=== PATIENT | female | born 1985 | race Caucasian/White ===

== ENCOUNTER 2019-02-17 01:07 | Emergency (ER) | payer MEDICAID ==
[~2019-02-17] VITALS: Ht 154.9 cm; Wt 63.5 kg
[~2019-02-17 01:07] MED LIST: BUPR75TA5 PO; CIPR500T4 PO; CLON1TAB13 PO; IBP600T1 PO; LBT200T PO; LOXA25CA PO; MELA1CAP PO; METR-145 PO; NORG1TAB15 PO; OMEP-10 PO; OMEP20CA13 PO; ONDA4TAB8 SL; ONDN4T PO; OXYC-12 PO; PANT40TA2 PO; PREN1TAB39 PO; PROC5TAB52 PO; PROM25TA14 PO; PROP20TA5 PO; SUCR1TAB PO; SUCR1TAB36 PO; VALA500T4 PO
--- OUTSIDE RECORDS SUMMARY | 2019-02-17 01:15 | XMS REPORT ---
Author Author Migration, Doctor Organization [facility] Address Unknown Phone Unavailable Care Team Providers Care Tank Farm Attendant Name Role Phone Migration, Doctor Unavailable Unavailable PROBLEMS Type Condition ICD9-CM Code [id number] Code Onset Dates Condition Status SNOMED Code Problem Epigastric pain R10.13 Active 02167330 Problem Dyspepsia R10.13 Active 702770887 Problem Irritable bowel syndrome with diarrhea K58.0 Active 199270500 Problem Psychotic disorder F29 Active 99418062 Problem Borderline personality disorder F60.3 Active 98510407 Problem Chronic nausea R11.0 Active 414827726 Problem Long-term use of high-risk medication Z79.899 Active 305115941 Problem Schizophrenia, unspecified type F20.9 Active 97043060 Problem Alcohol use disorder F10.99 Active 79377659 ALLERGIES No Information ENCOUNTERS Encounter Location Date Diagnosis [place] [id number] [place] [address] Jul, Schizophrenia, unspecified type F20.9 ; Alcohol use disorder F10.99 and Borderline personality disorder F60.3 [place] [id number] [place] [address] Jun, Psychotic disorder F29 and Alcohol use disorder F10.99 [place] [id number] [place] [address] Jun, Encounter for immunization Z23 [place] [id number] [place] [address] Mar, [place] [address] [address] Jan, [place] [id number] [place] [address] Jan, Dyspepsia R10.13 ; Chronic nausea R11.0 ; Epigastric pain R10.13 ; Tinea versicolor B36.0 and Schizophrenia, unspecified type F20.9 [facility] [id number] [place] [address] Dec, Chronic nausea R11.0 [facility] [id number] [place] [address] Jul, [place] [address] [address] Jul, Chronic nausea R11.0 [place] [address] [address] Jun, Irritable bowel syndrome with diarrhea K58.0 ; Chronic nausea R11.0 ; Dyspepsia R10.13 ; Long-term use of high-risk medication Z79.899 and Viral gastroenteritis A08.4 [place] [address] [address] Jun, Fever, unspecified fever cause R50.9 and Gastroenteritis K52.9 [place] [address] [address] Jun, [place] [address] [address] Jun, [facility] [address] [address] May, Encounter for immunization Z23 [facility] [id number] [place] [address] Apr, Bronchitis J40 ; Cough R05 and Nausea R11.0 [facility] [address] [address] Apr, [facility] [id number] [place] [address] Jan, Chronic nausea R11.0 [facility] [address] [address] Jan, Irritable bowel syndrome with diarrhea K58.0 ; Chronic nausea R11.0 ; Dyspepsia R10.13 and Long-term use of high-risk medication Z79.899 [facility] [id number] [place] [address] Dec, Irritable bowel syndrome with diarrhea K58.0 [facility] [id number] [place] [address] November, Acute upper respiratory infection, unspecified J06.9 ; Fever R50.9 and Influenza B J10.1 [place] [id number] [place] [address] Oct, Chronic nausea R11.0 [facility] [id number] [place] [address] Sep, Irritable bowel syndrome with diarrhea K58.0 ; Chronic nausea R11.0 ; Dyspepsia R10.13 and Long-term use of high-risk medication Z79.899 [place] [id number] [place] [address] Aug, [place] [address] [address] Jul, Acute non-recurrent frontal sinusitis J01.10 [place] [id number] [place] [address] Jul, [facility] [id number] [place] [address] Jun, [facility] [id number] [place] [address] Jun, Bronchitis J40 [facility] [id number] [place] [address] May, [facility] [id number] [place] [address] May, Irritable bowel syndrome with diarrhea K58.0 ; Chronic nausea R11.0 ; Dyspepsia R10.13 and Long-term use of high-risk medication Z79.899 [facility] [address] [address] May, [facility] [address] [address] Apr, [facility] [id number] [place] [address] Apr, [facility] [id number] [place] [address] Feb, [facility] [id number] [place] [address] Jan, Irritable bowel syndrome with diarrhea K58.0 ; Chronic nausea R11.0 and Dyspepsia R10.13 [facility] [id number] [place] [address] Jan, [facility] [address] [place] [address] Jan, [facility] [id number] [address] Jan, [facility] [address], [place] [address] November, [facility] [address], [place] [address] November, Epigastric pain R10.13 and Diarrhea R19.7 [facility] [address], [place] [address] November, Epigastric pain R10.13 [facility] [address], [place] [address] November, [facility] [address], [place] [address] November, [facility] [address], [place] [address] Jun, Epigastric pain R10.13 ; Dyspepsia K30 and Diarrhea R19.7 [facility] [address] [place] [address] Apr, Epigastric pain R10.13 and Dyspepsia K30 [facility] [id number] [place] [address] Apr, Epigastric pain R10.13 ; Dyspepsia K30 and Change in bowel function R19.4 [facility] [id number] [place] [address] Apr, [facility] [id number] [place] [address] Apr, [facility] [id number] [place] [address] Apr, [facility] [id number] [place] [address] Apr, [facility] [id number] [place] [address] May, [facility] [id number] [place] [address] May, [facility] [id number] [place] [address] Mar, [facility] [id number] [place] [address] Sep, IMMUNIZATIONS No Known Immunizations SOCIAL HISTORY Never Assessed REASON FOR VISIT [facility] PLAN OF CARE VITAL SIGNS MEDICATIONS No Known Medications RESULTS No Results PROCEDURES No Known procedures INSTRUCTIONS MEDICATIONS ADMINISTERED No Known Medications MEDICAL (GENERAL) HISTORY Type Description Date Medical History anxiety Medical History depression Medical History borderline personality disorder Medical History auditory hallucinations 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
--- OUTSIDE RECORDS SUMMARY | 2019-02-17 01:15 | XMS REPORT ---
Author Author RONNA GIBBS [facility] Address [address] [place] [address] Care Team Providers Care Telecommunications Line Installer Name Role Phone RONNA GIBBS Unavailable PROBLEMS Type Condition ICD9-CM Code HLG37-AO Code Onset Dates Condition Status SNOMED Code Problem Schizophrenia, unspecified type F20.9 Active 71999950 Problem Long-term use of high-risk medication Z79.899 Active 904335101 Problem Dyspepsia R10.13 Active 958451942 Problem Epigastric pain R10.13 Active 98674147 Problem Chronic nausea R11.0 Active 805678499 Problem Irritable bowel syndrome with diarrhea K58.0 Active 038014248 ALLERGIES No Information ENCOUNTERS Encounter Location Date Diagnosis [place] [id number] [place] [address] Mar, [place] [id number] [place] [address] Jan, [place] [id number] [place] [address] Jan, Dyspepsia R10.13 ; Chronic nausea R11.0 ; Epigastric pain R10.13 ; Tinea versicolor B36.0 and Schizophrenia, unspecified type F20.9 [facility] [place] [address] [place] [address] Dec, Chronic nausea R11.0 [place] [id number] [place] [address] Jul, [place] [id number] [place] [address] Jul, Chronic nausea R11.0 [place] [id number] [place] [address] Jun, Irritable bowel syndrome with diarrhea K58.0 ; Chronic nausea R11.0 ; Dyspepsia R10.13 ; Long-term use of high-risk medication Z79.899 and Viral gastroenteritis A08.4 [place] [id number] [place] [address] Jun, Fever, unspecified fever cause R50.9 and Gastroenteritis K52.9 [place] [address] [address] Jun, [place] [address] [address] Jun, [place] [address] [address] May, Encounter for immunization Z23 [facility] [address] [address] Apr, Bronchitis J40 ; Cough R05 and Nausea R11.0 [place] [id number] [place] [address] Apr, [place] [address] [address] Jan, Chronic nausea R11.0 [place] [id number] [place] [address] Jan, Irritable bowel syndrome with diarrhea K58.0 ; Chronic nausea R11.0 ; Dyspepsia R10.13 and Long-term use of high-risk medication Z79.899 [place] [address] [address] Dec, Irritable bowel syndrome with diarrhea K58.0 [facility] [id number] [place] [address] November, Acute upper respiratory infection, unspecified J06.9 ; Fever R50.9 and Influenza B J10.1 [place] [address] [address] Oct, Chronic nausea R11.0 [facility] [place] [address] [place] [address] Sep, Irritable bowel syndrome with diarrhea K58.0 ; Chronic nausea R11.0 ; Dyspepsia R10.13 and Long-term use of high-risk medication Z79.899 [facility] [place] [address] [place] [address] Aug, [facility] [place] [address] [place] [address] Jul, Acute non-recurrent frontal sinusitis J01.10 [facility] [place] [id number] [place] [address] Jul, [facility] [place] [id number] [place] [address] Jun, [facility] [place] [address] [address] Jun, Bronchitis J40 [facility] [place] [id number] [place] [address] May, [facility] [place] [address] [address] May, Irritable bowel syndrome with diarrhea K58.0 ; Chronic nausea R11.0 ; Dyspepsia R10.13 and Long-term use of high-risk medication Z79.899 [facility] [place] [address] [address] May, [facility] [place] [id number] [place] [address] Apr, [facility] [place] [address] [address] Apr, [facility] [place] [id number] [place] [address] Feb, [facility] [place] [address] [address] Jan, Irritable bowel syndrome with diarrhea K58.0 ; Chronic nausea R11.0 and Dyspepsia R10.13 [facility] [place] [address] [address] Jan, [facility] [place] [id number] [place] [address] Jan, [facility] [place] [id number] [place] [address] Jan, [facility] [place] [id number] [place] [address] November, [facility] [place] [id number] [address] November, Epigastric pain R10.13 and Diarrhea R19.7 [facility] [place] [address] [address] November, Epigastric pain R10.13 [facility] [place] [address] [address] November, [facility] [place] [address] [address] November, [facility] [place] [address] [address] Jun, Epigastric pain R10.13 ; Dyspepsia K30 and Diarrhea R19.7 [facility] [place] [address] [address] Apr, Epigastric pain R10.13 and Dyspepsia K30 [facility] [place] [address] [address] Apr, Epigastric pain R10.13 ; Dyspepsia K30 and Change in bowel function R19.4 [place] [address] [address] Apr, [facility] [place] [address] [address] Apr, [facility] [place] [address] [address] Apr, [facility] [place] [address] [address] Apr, [facility] [place] [address] [place] [address] May, [facility] [place] [address] [place] [address] May, [facility] [place] [address] [address] Mar, [facility] [place] [address] [address] Sep, IMMUNIZATIONS No Known Immunizations SOCIAL HISTORY Never Assessed REASON FOR VISIT Medication PLAN OF CARE VITAL SIGNS MEDICATIONS Medication Instructions Dosage Frequency Start Date End Date Duration Status Zofran ODT 4 MG Orally every 6 hours, PRN 1 tablet on the tongue and allow to dissolve as needed Jan, Active RESULTS No Results PROCEDURES No Known procedures [...]
--- OUTSIDE RECORDS SUMMARY | 2019-02-17 01:15 | XMS REPORT ---
Author Author RONNA GIBBS Organization [facility] Address [address] [place] [address] Care Team Providers Care Inspector Heating And Refrigeration Name Role Phone GIBBSRONNA Doss Unavailable PROBLEMS Type Condition ICD9-CM Code CAA27-FI Code Onset Dates Condition Status SNOMED Code Problem Schizophrenia, unspecified type F20.9 Active 03171990 Problem Long-term use of high-risk medication Z79.899 Active 013018646 Problem Dyspepsia R10.13 Active 090069270 Problem Epigastric pain R10.13 Active 87951894 Problem Chronic nausea R11.0 Active 746217423 Problem Irritable bowel syndrome with diarrhea K58.0 Active 494244909 ALLERGIES No Information ENCOUNTERS Encounter Location Date Diagnosis [place] [id number] [place] [address] Jan, [place] [id number] [place] [address] Jan, Dyspepsia R10.13 ; Chronic nausea R11.0 ; Epigastric pain R10.13 ; Tinea versicolor B36.0 and Schizophrenia, unspecified type F20.9 [place] [id number] [place] [address] Dec, Chronic nausea R11.0 [place] [id number] [place] [address] Jul, [place] [id number] [place] [address] Jul, Chronic nausea R11.0 [place] [id number] [place] [address] Jun, Irritable bowel syndrome with diarrhea K58.0 ; Chronic nausea R11.0 ; Dyspepsia R10.13 ; Long-term use of high-risk medication Z79.899 and Viral gastroenteritis A08.[address] [address] Jun, Fever, unspecified fever cause R50.9 and Gastroenteritis K52.[address] [address] Jun, [place] [address] [address] Jun, [address] [address] May, Encounter for immunization Z23 [facility] [address] [address] Apr, Bronchitis J40 ; Cough R05 and Nausea R11.[address] [address] Apr, [address] [address] Jan, Chronic nausea R11.[address] [address] Jan, Irritable bowel syndrome with diarrhea K58.0 ; Chronic nausea R11.0 ; Dyspepsia R10.13 and Long-term use of high-risk medication Z79.899 [place] [id number] [place] [address] Dec, Irritable bowel syndrome with diarrhea K58.0 [facility] [address] [place] [address] November, Acute upper respiratory infection, unspecified J06.9 ; Fever R50.9 and Influenza B J10.[address] [address] Oct, Chronic nausea R11.0 [facility] [address] [place] [address] Sep, Irritable bowel syndrome with diarrhea K58.0 ; Chronic nausea R11.0 ; Dyspepsia R10.13 and Long-term use of high-risk medication Z79.899 [facility] [id number] [place] [address] Aug, [facility] [id number] [place] [address] Jul, Acute non-recurrent frontal sinusitis J01.10 [place] [id number] [place] [address] Jul, [facility] [id number] [place] [address] Jun, [facility] [id number] [place] [address] Jun, Bronchitis J40 [facility] [id number] [place] [address] May, [facility] [id number] [place] [address] May, Irritable bowel syndrome with diarrhea K58.0 ; Chronic nausea R11.0 ; Dyspepsia R10.13 and Long-term use of high-risk medication Z79.899 [facility] [id number] [place] [address] May, [facility] [id number] [place] [address] Apr, [facility] [id number] [place] [address] Apr, [facility] [address] [place] [address] Feb, [facility] [id number] [place] [address] Jan, Irritable bowel syndrome with diarrhea K58.0 ; Chronic nausea R11.0 and Dyspepsia R10.13 [facility] [id number] [address] Jan, [facility] [id number] [place] [address] Jan, [facility] [id number] [place] [address] Jan, [facility] [id number] [place] [address] November, [facility] [id number] [place] [address] November, Epigastric pain R10.13 and Diarrhea R19.7 [facility] [id number] [place] [id number] November, Epigastric pain R10.13 [facility] [id number] [place] [id number] November, [facility] [id number] [place] [id number] November, [facility] [id number] [place] [id number] Jun, Epigastric pain R10.13 ; Dyspepsia K30 and Diarrhea R19.7 [facility] [id number] [address] Apr, Epigastric pain R10.13 and Dyspepsia K30 [facility] [id number] [place] [id number] Apr, Epigastric pain R10.13 ; Dyspepsia K30 and Change in bowel function R19.4 [facility] [id number] [place] [id number] Apr, [id number] [address] Apr, [facility] [id number] [address] Apr, [facility] [id number] [address] Apr, [facility] [id number] [address] May, [facility] [id number] [address] May, [facility] [id number] [address] Mar, [facility] [id number] [address] Sep, IMMUNIZATIONS No Known Immunizations SOCIAL HISTORY Never Assessed REASON FOR VISIT Medication question PLAN OF CARE VITAL SIGNS MEDICATIONS Medication Instructions Dosage Frequency Start Date End Date Duration Status Zofran ODT 4 MG Orally every 8 hours, PRN 1 tablet on the tongue [...]
--- OUTSIDE RECORDS SUMMARY | 2019-02-17 01:15 | XMS REPORT ---
Author Author MONICA CACERES [facility] Address [address] [place] [address] Care Team Providers Care [employer] Foreign Language Teacher Name Role Phone MONICA CACERES Unavailable PROBLEMS Type Condition ICD9-CM Code BAB23-HW Code Onset Dates Condition Status SNOMED Code Problem Schizophrenia, unspecified type F20.9 Active 53567019 Problem Long-term use of high-risk medication Z79.899 Active 536831241 Problem Dyspepsia R10.13 Active 470361636 Problem Epigastric pain R10.13 Active 78359572 Problem Chronic nausea R11.0 Active 615733033 Problem Irritable bowel syndrome with diarrhea K58.0 Active 667640831 ALLERGIES No Information ENCOUNTERS Encounter Location Date Diagnosis [place] [id number] [place] [id number] [place] [address] Jun, [place] [address] [address] Jun, Encounter for immunization Z23 [place] [address] [id number] [place] [address] Mar, [place] [address] [id number] [place] [address] Jan, [place] [id number] [place] [address] Jan, Dyspepsia R10.13 ; Chronic nausea R11.0 ; Epigastric pain R10.13 ; Tinea versicolor B36.0 and Schizophrenia, unspecified type F20.9 [place] [address] [id number] [place] [address] Dec, Chronic nausea R11.0 [place] [address] [place] [address] Jul, [facility] [address] [address] Jul, Chronic nausea R11.0 [place] [address] [address] Jun, Irritable bowel syndrome with diarrhea K58.0 ; Chronic nausea R11.0 ; Dyspepsia R10.13 ; Long-term use of high-risk medication Z79.899 and Viral gastroenteritis A08.4 [place] [address] [address] Jun, Fever, unspecified fever cause R50.9 and Gastroenteritis K52.9 [place] [address] [address] Jun, [place] [address] [address] Jun, [place] [address] [address] May, Encounter for immunization Z23 [facility] [address] [address] Apr, Bronchitis J40 ; Cough R05 and Nausea R11.0 [place] [id number] [place] [address] Apr, [place] [address] [address] Jan, Chronic nausea R11.0 [place] [address] [address] Jan, Irritable bowel syndrome with diarrhea K58.0 ; Chronic nausea R11.0 ; Dyspepsia R10.13 and Long-term use of high-risk medication Z79.899 [place] [address] [address] Dec, Irritable bowel syndrome with diarrhea K58.0 [facility] IN [facility] [address] [place] [address] November, Acute upper respiratory infection, unspecified J06.9 ; Fever R50.9 and Influenza B J10.1 [facility] [id number] [place] [address] Oct, Chronic nausea R11.0 [facility] [id number] [place] [address] Sep, Irritable bowel syndrome with diarrhea K58.0 ; Chronic nausea R11.0 ; Dyspepsia R10.13 and Long-term use of high-risk medication Z79.899 [place] [address] [id number] [place] [address] Aug, [place] [address] [address] Jul, Acute non-recurrent frontal sinusitis J01.10 [place] [id number] [place] [address] Jul, [place] [id number] [place] [address] Jun, [place] [id number] [place] [address] Jun, Bronchitis J40 [place] [id number] [place] [address] May, [place] [address] [id number] [place] [address] May, Irritable bowel syndrome with diarrhea K58.0 ; Chronic nausea R11.0 ; Dyspepsia R10.13 and Long-term use of high-risk medication Z79.899 [place] [id number] [place] [address] May, [place] [address] [address] Apr, [facility] [address] [place] [address] Apr, [facility] [address] [place] [address] Feb, [facility] [id number] [place] [address] Jan, Irritable bowel syndrome with diarrhea K58.0 ; Chronic nausea R11.0 and Dyspepsia R10.13 [facility] [address], [place] [address] Jan, [facility] [address] [place] [address] Jan, [facility] [address] [place] [address] Jan, [facility] [address], [place] [address] November, [facility] [address], [place] [address] November, Epigastric pain R10.13 and Diarrhea R19.7 [facility] [address], [place] [address] November, Epigastric pain R10.13 [facility] [address], [place] [address] November, [facility] [address], [place] [address] November, [facility] [address], [place] [address] Jun, Epigastric pain R10.13 ; Dyspepsia K30 and Diarrhea R19.7 [facility] [address], [place] [address] Apr, Epigastric pain R10.13 and Dyspepsia K30 [facility] [address], [place] [address] Apr, Epigastric pain R10.13 ; Dyspepsia K30 and Change in bowel function R19.4 [facility] [address], [place] [address] Apr, [facility] [id number] [place] [address] Apr, [facility] [id number] [place] [address] Apr, [facility] [id number] [place] [address] Apr, [facility] [id number] [place] [address] May, [facility] [id number] [place] [address] May, [facility] [id number] [place] [address] Mar, [facility] [id number] [place] [address] Sep, IMMUNIZATIONS Vaccine Route Administration Date Status FLULAVAL QUAD 0.5ML (6 MO AND UP) 2017 IM Intramuscular Jul 09, 2018 Administered SOCIAL HISTORY Never Assessed REASON FOR VISIT Flu shot PLAN OF CARE VITAL SIGNS MEDICATIONS Unknown Medications RESULTS No Results PROCEDURES Procedure Date Ordered Result Body Site FLULAVAL QUAD 0.5ML (6 MO AND UP) 2017Jul 09, 2018 SINGLE IMMUNIZATION ADMIN Jul 09, 2018 INSTRUCTIONS MEDICATIONS ADMINISTERED No Known Medications MEDICAL [...] with Intractable N/V, Colitis 11/28/15 Hospitalization History 11/30-12/09/15
--- OUTSIDE RECORDS SUMMARY | 2019-02-17 01:15 | XMS REPORT ---
Author Author RONNA GIBBS [facility] Address [address] [place] [address] Care Team Providers Care Mica Layer Name Role Phone RONNA GIBBS Unavailable PROBLEMS Type Condition ICD9-CM Code ISL81-QW Code Onset Dates Condition Status SNOMED Code Problem Schizophrenia, unspecified type F20.9 Active 47991523 Problem Long-term use of high-risk medication Z79.899 Active 698760636 Problem Dyspepsia R10.13 Active 227727228 Problem Epigastric pain R10.13 Active 05455680 Problem Chronic nausea R11.0 Active 401399933 Problem Irritable bowel syndrome with diarrhea K58.0 Active 457613635 ALLERGIES Substance Reaction Event Type Date Status Benadryl allergic to the red dye in this med Drug Allergy Jan, Active ENCOUNTERS Encounter Location Date Diagnosis [place] [id number] [place] [address] Jan, [place] [address] [place] [id number] [place] [address] Jan, Dyspepsia R10.13 ; Chronic nausea R11.0 ; Epigastric pain R10.13 ; Tinea versicolor B36.0 and Schizophrenia, unspecified type F20.9 [facility] [address] [place] [address] Dec, Chronic nausea R11.0 [place] [address] [place] [id number] [place] [address] Jul, [place] [address] [place] [address] [id number] [place] [address] Jul, Chronic nausea R11.0 [place] [address] [place] [address] [id number] [place] [address] Jun, Irritable bowel syndrome with diarrhea K58.0 ; Chronic nausea R11.0 ; Dyspepsia R10.13 ; Long-term use of high-risk medication Z79.899 and Viral gastroenteritis A08.4 [place] [address] [place] [address] [id number] [place] [address] Jun, Fever, unspecified fever cause R50.9 and Gastroenteritis K52.[address] [address] Jun, [place] [address] [address] Jun, [address] [address] May, Encounter for immunization Z23 [facility] [address] [address] Apr, Bronchitis J40 ; Cough R05 and Nausea R11.0 [place] [id number] [place] [address] Apr, [address] [address] Jan, Chronic nausea R11.0 [place] [id number] [place] [address] Jan, Irritable bowel syndrome with diarrhea K58.0 ; Chronic nausea R11.0 ; Dyspepsia R10.13 and Long-term use of high-risk medication Z79.899 [place] [address] [id number] [place] [address] Dec, Irritable bowel syndrome with diarrhea K58.0 [facility] [place] [address] [address] November, Acute upper respiratory infection, unspecified J06.9 ; Fever R50.9 and Influenza B J10.1 [place] [address] [address] Oct, Chronic nausea R11.0 [facility] [address] [id number] [place] [address] Sep, Irritable bowel syndrome with diarrhea K58.0 ; Chronic nausea R11.0 ; Dyspepsia R10.13 and Long-term use of high-risk medication Z79.899 [facility] [address] [place] [address] [id number] [place] [address] Aug, [facility] [address] [place] [address] [id number] [place] [address] Jul, Acute non-recurrent frontal sinusitis J01.10 [facility] [address] [place] [address] [id number] [place] [address] Jul, [facility] [address] [place] [address] [id number] [place] [address] Jun, [facility] [address] [place] [address] [id number] [place] [address] Jun, Bronchitis J40 [facility] [address] [place] [address] [id number] [place] [address] May, [facility] [address] [place] [address] May, Irritable bowel syndrome with diarrhea K58.0 ; Chronic nausea R11.0 ; Dyspepsia R10.13 and Long-term use of high-risk medication Z79.899 [facility] [address] [place] [address] May, [facility] [address] [place] [id number] [place] [address] Apr, [facility] [address] [place] [address] Apr, [facility] [address] [place] [address] [id number] [place] [address] Feb, [facility] [address] [address] Jan, Irritable bowel syndrome with diarrhea K58.0 ; Chronic nausea R11.0 and Dyspepsia R10.13 [facility] [address] [address] Jan, [facility] [address] [place] [id number] [place] [address] Jan, [facility] [address] [place] [address] Jan, [facility] [address] [place] [id number] [place] [address] November, [facility] [address] [id number] [place] [address] November, Epigastric pain R10.13 and Diarrhea R19.7 [facility] [address], [place] [address] November, Epigastric pain R10.13 [facility] [address] [id number] [place] [address] November, [facility] [address], [place] [address] November, [facility] [address], [place] [address] Jun, Epigastric pain R10.13 ; Dyspepsia K30 and Diarrhea R19.7 [facility] [address], [place] [address] Apr, Epigastric pain R10.13 and Dyspepsia K30 [facility] [address], [place] [address] Apr, Epigastric pain R10.13 ; Dyspepsia K30 and Change in bowel function R19.4 [facility] [address] [place] [address] [address] Apr, [facility] [address], [place] [address] Apr, [facility] [address], [place] [address] Apr, [facility] [address], [place] [address] Apr, [facility] [address], [place] [address] May, [facility] [address] [place] [address] May, [facility] [address], [place] [address] Mar, [facility] [address], [place] [address] Sep, IMMUNIZATIONS No Known Immunizations SOCIAL HISTORY Never Assessed REASON FOR VISIT Transition of Care., c/o patches all over body that are red and itchy-awoods PLAN OF CARE Activity Details Follow Up 3 Months, prn Reason:chm/dyspepsia VITAL SIGNS Height 61 in 2018-02-02 Weight 121.5 lbs 2018-02-02 Temperature 97.8 degrees Fahrenheit 2018-02-02 Heart Rate 70 bpm 2018-02-02 Respiratory Rate 18 2018-02-02 BMI 22.95 kg/m2 2018-02-02 Blood pressure systolic 110 mmHg 2018-02-02 Blood pressure diastolic 68 mmHg 2018-02-02 MEDICATIONS Medication Instructions Dosage Frequency Start Date End Date Duration Status Trintellix 10 MG Orally Once a day 1 tablet 24h Active Ativan 1 MG Orally TID, PRN 1 tablet as needed Active Fluphenazine Decanoate Active Sucralfate 1 gm/10ml Orally 3 times a day 10 mls three times per day on an empty stomach before meals 8h Jul, 30 days Active Compazine 5 mg Orally every 6-8 hours, PRN Nausea- 1 tablet Active Ketoconazole 2 % Externally Once a day apply to body and leave on for 5 minutes 24h Jan, Jan, 03 days Active Fluconazole 150 MG Orally once weekly 2 tablets per week for two weeks Jan, Jan, 2 days Active Tri-Sprintec 0.18/0.215/0.25 MG-35 MCG Orally Once a day 1 tablet 24h Active Restoril 15 mg Orally Once a day 1 capsule at bedtime as needed 24h Active Protonix 40 mg Orally Once a day 1 tablet 24h 90 days Active RESULTS No Results PROCEDURES Procedure Date Ordered Result Body Site COMPLETE CBC W/AUTO DIFF WBC February 02, 2018 COMPREHEN METABOLIC PANEL February 02, 2018 LIPID PANEL February 02, 2018 ASSAY THYROID STIM HORMONE February 02, 2018 VENIPUNCT, ROUTINE* February 02, 2018 INSTRUCTIONS MEDICATIONS ADMINISTERED No Known Medications [...]
--- OUTSIDE RECORDS SUMMARY | 2019-02-17 01:16 | XMS REPORT ---
Author Author MONICA CACERES [facility] Address [address] [place] [address] Care Team Providers Care Auto Rental Supervisor Name Role Phone MONICA CACERES Unavailable PROBLEMS Type Condition ICD9-CM Code QCJ43-NE Code Onset Dates Condition Status SNOMED Code Problem Schizophrenia, unspecified type F20.9 Active 43374986 Problem Long-term use of high-risk medication Z79.899 Active 802405302 Problem Dyspepsia R10.13 Active 704906303 Problem Epigastric pain R10.13 Active 69995929 Problem Chronic nausea R11.0 Active 466742898 Problem Irritable bowel syndrome with diarrhea K58.0 Active 731537405 ALLERGIES No Information ENCOUNTERS Encounter Location Date Diagnosis [place] [id number] [place] [address] Jan, [place] [id number] [place] [address] Jan, Dyspepsia R10.13 ; Chronic nausea R11.0 ; Epigastric pain R10.13 ; Tinea versicolor B36.0 and Schizophrenia, unspecified type F20.9 [place] [id number] [place] [address] Dec, Chronic nausea R11.0 [place] [address] [id number] [place] [address] Jul, [place] [address] [place] [id number] [place] [address] Jul, Chronic nausea R11.0 [place] [id number] [place] [address] Jun, Irritable bowel syndrome with diarrhea K58.0 ; Chronic nausea R11.0 ; Dyspepsia R10.13 ; Long-term use of high-risk medication Z79.899 and Viral gastroenteritis A08.[address] [address] Jun, Fever, unspecified fever cause R50.9 and Gastroenteritis K52.[address] [address] Jun, [place] [address] [address] Jun, [address] [address] May, Encounter for [facility] Z23 [facility] [address] [address] Apr, Bronchitis J40 ; Cough R05 and Nausea R11.[address] [address] Apr, [address] [address] Jan, Chronic nausea R11.[address] [address] Jan, Irritable bowel syndrome with diarrhea K58.0 ; Chronic nausea R11.0 ; Dyspepsia R10.13 and Long-term use of high-risk medication Z79.899 [place] [id number] [place] [address] Dec, Irritable bowel syndrome with diarrhea K58.0 [facility] [address] [address] November, Acute upper respiratory infection, unspecified J06.9 ; Fever R50.9 and Influenza B J10.[address] [address] Oct, Chronic nausea R11.0 [facility] [address] [place] [address] Sep, Irritable bowel syndrome with diarrhea K58.0 ; Chronic nausea R11.0 ; Dyspepsia R10.13 and Long-term use of high-risk medication Z79.899 [facility] [id number] [place] [address] Aug, [facility] [address] [place] [id number] [place] [address] Jul, Acute non-recurrent frontal sinusitis J01.10 [facility] [address] [address] Jul, [facility] [address] [place] [id number] [place] [address] Jun, [facility] [address] [place] [id number] [place] [address] Jun, Bronchitis J40 [facility] [address] [place] [id number] [place] [address] May, [facility] [address] [place] [id number] [place] [address] May, Irritable bowel syndrome with diarrhea K58.0 ; Chronic nausea R11.0 ; Dyspepsia R10.13 and Long-term use of high-risk medication Z79.899 [facility] [address] [id number] [place] [address] May, [facility] [address] [place] [id number] [place] [address] Apr, [facility] [address] [id number] [place] [address] Apr, [facility] [address] [place] [address] [id number] [place] [address] Feb, [facility] [address] [place] [address] Jan, Irritable bowel syndrome with diarrhea K58.0 ; Chronic nausea R11.[address] [facility] [address], [place] [address] Jan, [facility] [id number] [place] [address] Jan, [facility] [id number] [place] [address] Jan, [facility] [id number] [place] [address] November, [facility] [address] [place] [id number] [place] [address] November, Epigastric pain R10.[address] [facility] [address] [place] [id number] [place] [address] November, Epigastric pain R10.13 [facility] [address] [place] [address] [id number] [place] [address] November, [facility] [address] [place] [id number] [place] [address] November, [facility] [address], [place] [address] Jun, Epigastric pain R10.13 ; Dyspepsia K30 and Diarrhea R19.7 [facility] [address], [place] [address] Apr, Epigastric pain R10.[address] [facility] [address] [place] [id number] [place] [address] Apr, Epigastric pain R10.13 ; Dyspepsia K30 and Change in bowel function R19.4 [facility] [address] [place] [address] Apr, [facility] [address] [place] [address] [address] Apr, [facility] [address] [place] [address] [address] [address] Apr, [facility] [address], [place] [address] Apr, [facility] [address] [address] May, [facility] [address] [place] [address] May, [facility] [address], [place] [address] Mar, [facility] [address], [place] [address] Sep, IMMUNIZATIONS No Known Immunizations SOCIAL HISTORY Never Assessed REASON FOR VISIT Refill request PLAN OF CARE VITAL SIGNS MEDICATIONS Medication Instructions Dosage Frequency Start Date End Date Duration Status Compazine 5 mg Orally every 6-8 hours, PRN Nausea- 1 tablet Active RESULTS No Results PROCEDURES No Known [...]
--- OUTSIDE RECORDS SUMMARY | 2019-02-17 01:16 | XMS REPORT ---
Author Author MONICA CACERES [facility] Address [address] [place] [address] Care Team Providers Care Communications Department Chair Name Role Phone MONICA CACERES Unavailable PROBLEMS Type Condition ICD9-CM Code BLH90-PC Code Onset Dates Condition Status SNOMED Code Problem Pediatric pre- visit for expectant mother V65.11 Active Problem Dyspepsia K30 Active 236482304 Problem Need for prophylactic vaccination and inoculation, Influenza V04.81 Active 172755965 Problem Long-term use of high-risk medication Z79.899 Active 568747991 Problem Chronic nausea R11.0 Active 650048987 Problem Epigastric pain R10.13 Active 34618438 Problem Diarrhea R19.7 Active 52459042 Problem Dyspepsia R10.13 Active 100558389 Problem Irritable bowel syndrome with diarrhea K58.0 Active 318788938 ALLERGIES Substance Reaction Event Type Date Status Benadryl allergic to the red dye in this med Drug Allergy Sep, Active SOCIAL HISTORY Never Assessed PLAN OF CARE Activity Details Follow Up 3 Months Reason:Nausea/Med FU VITAL SIGNS Height 61 in 2016-09-18 Weight 99.5 lbs 2016-09-18 Temperature 99.6 degrees Fahrenheit 2016-09-18 Heart Rate 76 bpm 2016-09-18 Respiratory Rate 18 2016-09-18 BMI 18.80 kg/m2 2016-09-18 Blood pressure systolic 126 mmHg 2016-09-18 Blood pressure diastolic 76 mmHg 2016-09-18 MEDICATIONS Medication Instructions Dosage Frequency Start Date End Date Duration Status Tramadol HCl 50 MG Orally every 6 hrs prn must last 3 months 1 tablet as needed Active Dicyclomine HCl 10 mg Orally 3 times a day 1-2 capsules 8h Sep, Sep, 10 days Active Loxapine Succinate 10 mg Orally Once a day in the evening 1 capsule Active Compazine 5 mg Orally every 6-8 hours, PRN Nausea- 1 tablet Active Protonix 40 mg Orally Once a day 1 tablet 24h Active Sucralfate 1 gram Orally 3 times a day 1 tablet 8h Active Klonopin 1 MG Orally 3 times a day 1 tablet 8h Active Propranolol HCl 20 MG Orally 3 times a day 1.5 tablet 8h Active Tri-Sprintec 0.18/0.215/0.25 MG-35 MCG Orally Once a day 1 tablet 24h Active RESULTS Name Result Date Reference Range CBC 2016-09-18 WBC 8.1 3.4-10.8 RBC 4.63 3.77-5.28 Hemoglobin 14.3 11.1-15.9 Hematocrit 42.7 34.0-46.6 MCV 92 79-97 MCH 30.9 26.6-33.0 MCHC 33.5 31.5-35.7 RDW 14.3 12.3-15.4 Platelets 201 150-379 Neutrophils 49 Lymphs 44 Monocytes 5 Eos 2 Basos 0 Neutrophils (Absolute) 4.0 1.4-7.0 Lymphs (Absolute) 3.6 0.7-3.1 Monocytes(Absolute) 0.4 0.1-0.9 Eos (Absolute) 0.1 0.0-0.4 Baso (Absolute) 0.0 0.0-0.2 Immature Granulocytes 0 Immature Grans (Abs) 0.0 0.0-0.1 CMP 2016-09-18 Glucose, Serum 79 65-99 BUN 7 6-20 Creatinine, Serum 0.66 0.57-1.00 eGFR If NonAfricn Am 116 >59 eGFR If Africn Am 134 >59 BUN/Creatinine Ratio 11 8-20 Sodium, Serum 141 134-144 Potassium, Serum 3.8 3.5-5.2 Chloride, Serum 100 96-106 Carbon Dioxide, Total 24 18-29 Calcium, Serum 9.0 8.7-10.2 Protein, Total, Serum 7.0 6.0-8.5 Albumin, Serum 4.5 3.5-5.5 Globulin, Total 2.5 1.5-4.5 A/G Ratio 1.8 1.1-2.5 Bilirubin, Total 0.4 0.0-1.2 Alkaline Phosphatase, S 45 39-117 AST (SGOT) 11 0-40 ALT (SGPT) 12 0-32 PROCEDURES Procedure Date Ordered Result Body Site COMPREHEN METABOLIC PANEL September 18, 2016 COMPLETE CBC W/AUTO DIFF WBC September 18, 2016 VENIPUNCT, ROUTINE* September 18, 2016 IMMUNIZATIONS No Known Immunizations MEDICAL (GENERAL) HISTORY Type Description Date Medical History anxiety Medical History depression Medical History borderline personality disorder Medical History auditory hallucinations 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
--- OUTSIDE RECORDS SUMMARY | 2019-02-17 01:16 | XMS REPORT ---
Author Author MONICA CACERES Organization [facility] Address [address] [place] [address] Care Team Providers Care Log Handler Name Role Phone MONICA CACERES Unavailable PROBLEMS Type Condition ICD9-CM Code SBK93-GI Code Onset Dates Condition Status SNOMED Code Problem Dyspepsia K30 Active 589478685 Problem Long-term use of high-risk medication Z79.899 Active 723973591 Problem Chronic nausea R11.0 Active 520886223 Problem Epigastric pain R10.13 Active 81767456 Problem Diarrhea R19.7 Active 12533129 Problem Dyspepsia R10.13 Active 524426637 Problem Irritable bowel syndrome with diarrhea K58.0 Active 045600883 ALLERGIES No Information ENCOUNTERS Encounter Location Date Diagnosis [place] [id number] [place] [phone] Jul, [place] [address] [address] 15 Jul, 2017 Chronic nausea R11.0 [place] [id number] [place] [address] 13 Jun, 2017 Irritable bowel syndrome with diarrhea K58.0 ; Chronic nausea R11.0 ; Dyspepsia R10.13 ; Long-term use of high-risk medication Z79.899 and Viral gastroenteritis A08.4 [place] [id number] [place] [address] 11 Jun, 2017 Fever, unspecified fever cause R50.9 and Gastroenteritis K52.9 [place] [id number] [place] [address] 05 Jun, 2017 [place] [address] [address] Jun, [facility] [id number] [place] [address] May, Encounter for immunization Z23 [facility] [id number] [place] [address] Apr, Bronchitis J40 ; Cough R05 and Nausea R11.[address] [address] Apr, [place] [address] [address] Jan, Chronic nausea R11.0 [place] [address] [address] Jan, Irritable bowel syndrome with diarrhea K58.0 ; Chronic nausea R11.0 ; Dyspepsia R10.13 and Long-term use of high-risk medication Z79.899 [place] [id number] [place] [address] Dec, Irritable bowel syndrome with diarrhea K58.0 [facility] [id number] [place] [address] November, Acute upper respiratory infection, unspecified J06.9 ; Fever R50.9 and Influenza B J10.1 [place] [id number] [place] [address] Oct, Chronic nausea R11.0 [place] [id number] [place] [address] Sep, Irritable bowel syndrome with diarrhea K58.0 ; Chronic nausea R11.0 ; Dyspepsia R10.13 and Long-term use of high-risk medication Z79.899 [place] [id number] [place] [address] Aug, [place] [address] [address] Jul, Acute non-recurrent frontal sinusitis J01.10 [facility] [id number] [place] [address] Jul, [facility] [id number] [place] [address] Jun, [facility] [id number] [place] [address] Jun, Bronchitis J40 [facility] [id number] [place] [address] May, [facility] [id number] [place] [address] May, Irritable bowel syndrome with diarrhea K58.0 ; Chronic nausea R11.0 ; Dyspepsia R10.13 and Long-term use of high-risk medication Z79.899 [facility] [id number] [place] [address] May, [facility] [id number] [place] [address] Apr, [facility] [id number] [place] [address] Apr, [facility] [id number] [place] [phone] Feb, [facility] [id number] [place] [address] Jan, Irritable bowel syndrome with diarrhea K58.0 ; Chronic nausea R11.0 and Dyspepsia R10.13 [facility] [id number] [place] [address] Jan, [facility] [id number] [place] [phone] Jan, [facility] [id number] [place] [address] Jan, [facility] [address] [address] November, [facility] [id number] [place] [address] November, Epigastric pain R10.13 and Diarrhea R19.7 [facility] [id number] [address] November, Epigastric pain R10.13 [facility] [id number] [place] [phone] November, [facility] [id number] [place] [address] November, [facility] [id number] [place] [address] Jun, Epigastric pain R10.13 ; Dyspepsia K30 and Diarrhea R19.7 [facility] [address] [place] [address] Apr, Epigastric pain R10.13 and Dyspepsia K30 [facility] [id number] [place] [address] Apr, Epigastric pain R10.13 ; Dyspepsia K30 and Change in bowel function R19.4 [facility] [address], [place] [address] Apr, [facility] [address], [place] [address] Apr, [facility] [address], [place] [address] Apr, [facility] [address] [address] Apr, [facility] [address] [address] May, [facility] [id number] [place] [address] May, [facility] [address] [facility] [id number] [place] [address] Mar, [facility] [address] [facility] [id number] [place] [address] Sep, IMMUNIZATIONS No Known Immunizations SOCIAL HISTORY Never Assessed REASON FOR VISIT Medication refill request PLAN OF CARE VITAL SIGNS MEDICATIONS Medication Instructions Dosage Frequency Start Date End Date Duration Status Compazine 5 mg Orally every 6-8 hours, PRN Nausea-Must have appt for refills 1 tablet Active RESULTS No Results PROCEDURES [...] ovary Hospitalization History Out patient therapy for issues 2007 Hospitalization History Abd Pain with Intractable N/V, Colitis 11/28/15 Hospitalization History [facility]
--- OUTSIDE RECORDS SUMMARY | 2019-02-17 01:16 | XMS REPORT ---
Author Author MONICA CACERES Organization [facility] Address [address] [place] [address] Care Team Providers Care Senior Recruitment Consultant Name Role Phone MONICA CACERES Unavailable PROBLEMS Type Condition ICD9-CM Code ATF62-SC Code Onset Dates Condition Status SNOMED Code Problem Dyspepsia K30 Active 829007233 Problem Long-term use of high-risk medication Z79.899 Active 011571170 Problem Chronic nausea R11.0 Active 297926911 Problem Epigastric pain R10.13 Active 02980822 Problem Diarrhea R19.7 Active 62043150 Problem Dyspepsia R10.13 Active 591039542 Problem Irritable bowel syndrome with diarrhea K58.0 Active 996656765 ALLERGIES No Information ENCOUNTERS Encounter Location Date Diagnosis [place] [id number] [place] [address] Jul, [place] [address] [address] 15 Jul, 2017 Chronic nausea R11.0 [place] [id number] [place] [address] 13 Jun, 2017 Irritable bowel syndrome with diarrhea K58.0 ; Chronic nausea R11.0 ; Dyspepsia R10.13 ; Long-term use of high-risk medication Z79.899 and Viral gastroenteritis A08.4 [place] [id number] [place] [address] 11 Jun, 2017 Fever, unspecified fever cause R50.9 and Gastroenteritis K52.9 [place] [id number] [place] [address] 05 Jun, 2017 [place] [address] [address] Jun, [facility] [id number] [place] [address] May, Encounter for immunization Z23 [facility] [id number] [place] [address] Apr, Bronchitis J40 ; Cough R05 and Nausea R11.[address] [address] Apr, [place] [address] [address] Jan, Chronic nausea R11.0 [place] [address] [address] Jan, Irritable bowel syndrome with diarrhea K58.0 ; Chronic nausea R11.0 ; Dyspepsia R10.13 and Long-term use of high-risk medication Z79.899 [place] [id number] [place] [address] Dec, Irritable bowel syndrome with diarrhea K58.0 [facility] IN [facility] [id number] [place] [address] November, Acute upper respiratory infection, unspecified J06.9 ; Fever R50.9 and Influenza B J10.1 [place] [id number] [place] [address] Oct, Chronic nausea R11.0 [place] [id number] [place] [address] Sep, Irritable bowel syndrome with diarrhea K58.0 ; Chronic nausea R11.0 ; Dyspepsia R10.13 and Long-term use of high-risk medication Z79.899 [place] [id number] [place] [address] Aug, [place] [address] [address] Jul, Acute non-recurrent frontal sinusitis J01.10 [facility] [id number] [place] [address] Jul, [facility] [id number] [place] [address] Jun, [facility] [id number] [place] [address] Jun, Bronchitis J40 [facility] [id number] [place] [address] May, [facility] [id number] [place] [address] May, Irritable bowel syndrome with diarrhea K58.0 ; Chronic nausea R11.0 ; Dyspepsia R10.13 and Long-term use of high-risk medication Z79.899 [facility] [id number] [place] [address] May, [facility] [id number] [place] [address] Apr, [facility] [id number] [place] [address] Apr, [facility] [id number] [place] [address] Feb, [facility] [id number] [place] [address] Jan, Irritable bowel syndrome with diarrhea K58.0 ; Chronic nausea R11.0 and Dyspepsia R10.13 [facility] [id number] [place] [address] Jan, [facility] [id number] [place] [address] Jan, [facility] [id number] [place] [address] Jan, [facility] [address], [place] [address] November, [facility] [id number] [place] [address] November, Epigastric pain R10.13 and Diarrhea R19.7 [facility] [id number] [address] November, Epigastric pain R10.13 [facility] [id number] [place] [address] November, [facility] [id number] [place] [address] November, [facility] [id number] [place] [address] Jun, Epigastric pain R10.13 ; Dyspepsia K30 and Diarrhea R19.7 [facility] [address] [place] [address] Apr, Epigastric pain R10.13 and Dyspepsia K30 [facility] [id number] [place] [address] Apr, Epigastric pain R10.13 ; Dyspepsia K30 and Change in bowel function R19.4 [facility] [address], [place] [address] Apr, [facility] [address], [place] [address] Apr, [facility] [address], [place] [address] Apr, [facility] [address], [place] [address] Apr, [facility] [address], [place] [address] May, [facility] [address] [place] [id number] [address] May, [facility] [address] [facility] [id number] [place] [address] Mar, [facility] [address] [facility] [id number] [place] [address] Sep, IMMUNIZATIONS No Known Immunizations SOCIAL HISTORY [...]
--- OUTSIDE RECORDS SUMMARY | 2019-02-17 01:16 | XMS REPORT ---
Author Author ZACK VERGARA Organization [facility] Address [address] [place] [address] Care Team Providers Care Senior Product Integrity Engineer Name Role Phone ZACK VERGARA Unavailable PROBLEMS Type Condition ICD9-CM Code NHN93-KH Code Onset Dates Condition Status SNOMED Code Problem Pediatric pre- visit for expectant mother V65.11 Active Problem Dyspepsia K30 Active 812603565 Problem Need for prophylactic vaccination and inoculation, Influenza V04.81 Active 830868907 Problem Long-term use of high-risk medication Z79.899 Active 242152256 Problem Chronic nausea R11.0 Active 845331194 Problem Epigastric pain R10.13 Active 63778266 Problem Diarrhea R19.7 Active 16379358 Problem Dyspepsia R10.13 Active 177808968 Problem Irritable bowel syndrome with diarrhea K58.0 Active 379359442 ALLERGIES Substance Reaction Event Type Date Status Benadryl allergic to the red dye in this med Drug Allergy November, Active SOCIAL HISTORY Never Assessed PLAN OF CARE VITAL SIGNS Height 61 in 2016-11-29 Weight 110.4 lbs 2016-11-29 Temperature 98.9 degrees Fahrenheit 2016-11-29 Heart Rate 80 bpm 2016-11-29 Respiratory Rate 22 2016-11-29 BMI 20.86 kg/m2 2016-11-29 Blood pressure systolic 128 mmHg 2016-11-29 Blood pressure diastolic 74 mmHg 2016-11-29 MEDICATIONS Medication Instructions Dosage Frequency Start Date End Date Duration Status Tramadol HCl 50 MG Orally every 6 hrs prn must last 3 months 1 tablet as needed Active Protonix 40 mg Orally Once a day 1 tablet 24h Active Tri-Sprintec 0.18/0.215/0.25 MG-35 MCG Orally Once a day 1 tablet 24h Active Klonopin 1 MG Orally 3 times a day 1 tablet 8h Active Loxapine Succinate 10 mg Orally Once a day in the evening 1 capsule Active Compazine 5 mg Orally every 6-8 hours, PRN Nausea- 1 tablet Active Tessalon Perles 100 mg Orally Three times a day 1 capsule as needed 8h November, Active Sucralfate 1 gram Orally 3 times a day 1 tablet 8h Active Tamiflu 75 MG Orally Twice a day 1 capsule 12h November, 5 day(s) Active Propranolol HCl 20 MG Orally 3 times a day 1.5 tablet 8h Active RESULTS Name Result Date Reference Range INFLUENZA A & B (IN HOUSE) 2016-11-29 INFLUENZA A negative INFLUENZA B positive Control + Lot # [id number] Exp date 2018 PROCEDURES Procedure Date Ordered Result Body Site INFLUENZA ASSAY W/OPTIC November 29, 2016 IMMUNIZATIONS No Known Immunizations MEDICAL (GENERAL) [...]
--- OUTSIDE RECORDS SUMMARY | 2019-02-17 01:16 | XMS REPORT ---
Author Author MONICA CACERES [facility] Address [address] [place] [address] Care Team Providers Care Community Pharmacist Name Role Phone MONICA CACERES Unavailable PROBLEMS Type Condition ICD9-CM Code VRQ02-PV Code Onset Dates Condition Status SNOMED Code Problem Dyspepsia K30 Active 443320615 Problem Long-term use of high-risk medication Z79.899 Active 367237089 Problem Chronic nausea R11.0 Active 487682316 Problem Epigastric pain R10.13 Active 39598671 Problem Diarrhea R19.7 Active 01752729 Problem Dyspepsia R10.13 Active 251702099 Problem Irritable bowel syndrome with diarrhea K58.0 Active 087214747 ALLERGIES Substance Reaction Event Type Date Status Benadryl allergic to the red dye in this med Drug Allergy Jun, Active ENCOUNTERS Encounter Location Date Diagnosis [place] [address] [address] Jul, [place] [address] [address] Jul, Chronic nausea R11.0 [place] [address] [address] Jun, Irritable bowel syndrome with diarrhea K58.0 ; Chronic nausea R11.0 ; Dyspepsia R10.13 ; Long-term use of high-risk medication Z79.899 and Viral gastroenteritis A08.4 [place] [address] [address] Jun, Fever, unspecified fever cause R50.9 and Gastroenteritis K52.9 [place] [address] [address] Jun, [facility] [id number] [place] [address] Jun, [facility] [address] [address] May, Encounter for immunization Z23 [facility] [address] [place] [id number] [place] [address] Apr, Bronchitis J40 ; Cough R05 and Nausea R11.0 [facility] [address] [place] [id number] [place] [address] Apr, [place] [address] [address] Jan, Chronic nausea R11.0 [place] [address] [place] [id number] [place] [address] Jan, Irritable bowel syndrome with diarrhea K58.0 ; Chronic nausea R11.0 ; Dyspepsia R10.13 and Long-term use of high-risk medication Z79.899 [place] [address] [place] [id number] [place] [address] Dec, Irritable bowel syndrome with diarrhea K58.0 [facility] [address] [place] [id number] [place] [address] November, Acute upper respiratory infection, unspecified J06.9 ; Fever R50.9 and Influenza B J10.1 [facility] [address] [place] [id number] [place] [address] Oct, Chronic nausea R11.0 [facility] [address] [place] [address] Sep, Irritable bowel syndrome with diarrhea K58.0 ; Chronic nausea R11.0 ; Dyspepsia R10.13 and Long-term use of high-risk medication Z79.899 [facility] [address] [place] [address] Aug, [facility] [address] [address] Jul, Acute non-recurrent frontal sinusitis J01.10 [facility] [address] [address] Jul, [facility] [address] [address] Jun, [facility] [address] [place] [id number] [place] [address] Jun, Bronchitis J40 [facility] [address] [place] [id number] [place] [address] May, [facility] [address] [place] [id number] [place] [address] May, Irritable bowel syndrome with diarrhea K58.0 ; Chronic nausea R11.0 ; Dyspepsia R10.13 and Long-term use of high-risk medication Z79.899 [facility] [address] [address] May, [facility] [address] [place] [id number] [place] [address] Apr, [facility] [address] [address] Apr, [facility] [address] [address] Feb, [facility] [address] [address] Jan, Irritable bowel syndrome with diarrhea K58.0 ; Chronic nausea R11.0 and Dyspepsia R10.13 [facility] [address] [address] Jan, [facility] [address] [address] Jan, [facility] [address] [address] Jan, [facility] [address] [address] November, [facility] [address] [address] November, Epigastric pain R10.13 and Diarrhea R19.7 [facility] [address] [place] [id number] [place] [address] November, Epigastric pain R10.13 [facility] [address] [place] [address] November, [facility] [address] [place] [id number] [place] [address] November, [facility] [address] [place] [id number] [place] [address] Jun, Epigastric pain R10.13 ; Dyspepsia K30 and Diarrhea R19.7 [facility] [address] [address] Apr, Epigastric pain R10.13 and Dyspepsia K30 [facility] [address] [address] Apr, Epigastric pain R10.13 ; Dyspepsia K30 and Change in bowel function R19.4 [facility] [address] [address] Apr, [facility] [address] [address] Apr, [facility] [address] [address] Apr, [facility] [address] [address] Apr, [facility] [id number] [place] [address] May, [facility] [address] [facility] [id number] [address] May, [facility] [address] [facility] [id number] [address] Mar, [facility] [address] [facility] [id number] [address] Sep, IMMUNIZATIONS No Known Immunizations SOCIAL HISTORY Never Assessed REASON FOR VISIT Nausea: was seen on Thursday for similar symptoms with the addition of diarrhea, d iarrhea has subsided, but patient continues to vomit bobby negrete PLAN OF CARE Activity Details Follow Up if not improving or regular fu Reason:chronic n/v VITAL SIGNS Height 61 in 2017-07-01 Weight 113.5 lbs 2017-07-01 Temperature 98.6 degrees Fahrenheit 2017-07-01 Heart Rate 76 bpm 2017-07-01 Respiratory Rate 18 2017-07-01 BMI 21.44 kg/m2 2017-07-01 Blood pressure systolic 110 mmHg 2017-07-01 Blood pressure diastolic 76 mmHg 2017-07-01 MEDICATIONS Medication Instructions Dosage Frequency Start Date End Date Duration Status Tri-Sprintec 0.18/0.215/0.25 MG-35 MCG Orally Once a day 1 tablet 24h Active Loxapine Succinate 10 mg Orally Once a day in the evening 1 capsule 28 days Active Propranolol HCl 20 MG Orally 3 times a day 1.5 tablet 8h Active Tessalon Perles 100 mg Orally Three times a day 1 capsule as needed 8h November, Not-Taking Zofran 4 MG Orally every 4-6 hours as needed 12 tablets Apr, 10 days Active Zofran 4 MG Orally every 8 hours, PRN 1 tablets Active Azithromycin 500 mg Orally Once a day one tablet 24h Apr, Active Sucralfate 1 gm/10ml Orally 3 times a day 1 tablet 8h Active Tramadol HCl 50 MG Orally every 6 hrs prn must last 3 months 1 tablet as needed Active ProAir HFA 108 (90 Base) MCG/ACT Inhalation every 6 hrs 2 puffs as needed 6h Apr, Active Zofran 4 MG Orally every 4 hours prn 1 tablets Jun, 10 days Active Klonopin 1 MG Orally 3 times a day 1 tablet 8h Active Protonix 40 mg Orally Once a day 1 tablet 24h Active Zofran 4 MG Orally every 4-6 hours as needed 1 tablets Apr, 07 days Active Tamiflu 75 MG Orally Twice a day 1 capsule 12h November, 5 day(s) Not-Taking Compazine 5 mg Orally every 6-8 hours, PRN Nausea- 1 tablet Active RESULTS No Results PROCEDURES Procedure Date Ordered Result Body Site IV INFUSION 2017-07-01 N/A [facility] Jul 01, 2017 HYDRATION IV INFUSION, INIT Jul 01, 2017 INSTRUCTIONS MEDICATIONS ADMINISTERED No Known Medications MEDICAL [...]
--- OUTSIDE RECORDS SUMMARY | 2019-02-17 01:17 | XMS REPORT ---
Author MONICA Sampson [facility] [employer] Address Unknown Phone Unavailable Care Team Providers Care Household Manager Name Role Phone MONICA CACERES CP Unavailable Allergies, Adverse Reactions, Alerts Substance Reaction Event Type Benadryl allergic to the red dye in this med Drug Allergy Problems Problem Type Condition Code Onset Dates Condition Status Assessment Chronic nausea R11.0 Active Problem Pediatric pre- visit for expectant mother V65.11 Active Assessment Irritable bowel syndrome with diarrhea K58.0 Active Assessment Dyspepsia R10.13 Active Problem Chronic nausea R11.0 Active Problem Dyspepsia R10.13 Active Problem Irritable bowel syndrome with diarrhea K58.0 Active Problem Diarrhea R19.7 Active Problem Need for prophylactic vaccination and inoculation, Influenza V04.81 Active Problem Epigastric pain R10.13 Active Problem Dyspepsia K30 Active Medications Medication Code System Code Instructions Start Date End Date Status Dosage Ultram ER [facility] [address]-34 100 MG Orally Once a day December 12, 2015 February 05, 2016 1 tablet Compazine [facility] [address]-72 5 mg Orally every 6-8 hours, PRN Nausea- must attend scheduled appt 02/04November 29, 2015 1 tablet Protonix [facility] [address]-24 40 mg Orally Once a day 1 tablet Propranolol HCl [facility] [address]-28 20 MG Orally 3 times a day 1.5 tablet Klonopin [facility] [address]-18 1 MG Orally 3 times a day 1 tablet Loxapine Succinate [facility] [address]-14 10 mg Orally Once a day in the evening 1 capsule Tri-Sprintec [facility] [address]-69 0.18/0.215/0.25 MG-35 MCG Orally Once a day 1 tablet Sucralfate [facility] [address]-69 1 GM/10ML Orally 3 times a day 10 ml Procedures Procedure Coding System Code Date Office Visit, Est Pt., Level 4 CPT-4 50367 February 05, 2016 VENIPUNCT, ROUTINE* CPT-4 07962 February 05, 2016 [facility] NOBLL February 05, 2016 Vital Signs Date/Time: February 05, 2016 Cardiac Monitoring Heart Rate 84 bpm Weight 97.6 lbs Height 61 in Blood Pressure Diastolic 68 mmHg Blood Pressure Systolic 121 mmHg Results No Known Results Summary Purpose eClinicalWorks Submission
--- OUTSIDE RECORDS SUMMARY | 2019-02-17 01:17 | XMS REPORT ---
Author Author ZACK VERGARA Organization [facility] Address [address] [place] [address] Care Team Providers Care Physics And Astronomy Professor Name Role Phone ZACK VERGARA Unavailable PROBLEMS Type Condition ICD9-CM Code [id number] Code Onset Dates Condition Status SNOMED Code Problem Pediatric pre- visit for expectant mother V65.11 Active Problem Diarrhea R19.7 Active 74754233 Problem Need for prophylactic vaccination and inoculation, Influenza V04.81 Active 115888269 Problem Long-term use of high-risk medication Z79.899 Active 736304300 Problem Irritable bowel syndrome with diarrhea K58.0 Active 546475765 Problem Epigastric pain R10.13 Active 08329985 Problem Dyspepsia K30 Active 335649289 Problem Chronic nausea R11.0 Active 495706945 Problem Dyspepsia R10.13 Active 635463417 ALLERGIES Substance Reaction Event Type Date Status Benadryl allergic to the red dye in this med Drug Allergy Jun, Active SOCIAL HISTORY No smoking Hx information available PLAN OF CARE VITAL SIGNS Height 61 in 2016-07-14 Weight 100.6 lbs 2016-07-14 Temperature 99.4 degrees Fahrenheit 2016-07-14 Heart Rate 84 bpm 2016-07-14 Respiratory Rate 22 2016-07-14 BMI 19.01 kg/m2 2016-07-14 Blood pressure systolic 130 mmHg 2016-07-14 Blood pressure diastolic 71 mmHg 2016-07-14 MEDICATIONS Medication Instructions Dosage Frequency Start Date End Date Duration Status Propranolol HCl 20 MG Orally 3 times a day 1.5 tablet 8h Active Tri-Sprintec 0.18/0.215/0.25 MG-35 MCG Orally Once a day 1 tablet 24h Active Protonix 40 mg Orally Once a day 1 tablet 24h Active Tramadol HCl 50 MG Orally every 6 hrs prn must last 3 months 1 tablet as needed May, Active Klonopin 1 MG Orally 3 times a day 1 tablet 8h Active Zithromax Z-Conor 250 MG Orally Once a day 2 tablets on the first day, then 1 tablet daily for 4 days 24h Jun, Jun, 5 day(s) Active Loxapine Succinate 10 mg Orally Once a day in the evening 1 capsule Active Tessalon Perles 100 MG Orally Three times a day 1 capsule as needed 8h Jun, Active Sucralfate 1 gram Orally 3 times a day 1 tablet 8h Active Compazine 5 mg Orally every 6-8 hours, PRN Nausea- 1 tablet Active RESULTS No Results PROCEDURES Procedure Date Ordered Related Diagnosis Body Site Office Visit, Est Pt., Level 3 Jul 14, 2016 IMMUNIZATIONS No Known Immunizations
--- OUTSIDE RECORDS SUMMARY | 2019-02-17 01:17 | XMS REPORT ---
Author Author MONICA CACERES Organization [employer] Address Unknown Phone Unavailable Care Team Providers Care Office Nurse Name Role Phone MONICA CACERES CP Unavailable Allergies No Known Allergies Problems Problem Type Condition Code Onset Dates Condition Status Problem Pediatric pre- visit for expectant mother V65.11 Active Problem Chronic nausea R11.0 Active Problem Dyspepsia R10.13 Active Problem Irritable bowel syndrome with diarrhea K58.0 Active Problem Diarrhea R19.7 Active Problem Need for prophylactic vaccination and inoculation, Influenza V04.81 Active Problem Epigastric pain R10.13 Active Problem Dyspepsia K30 Active Medications Medication Code System Code Instructions Start Date End Date Status Dosage Compazine NDC 0 5 mg Orally every 6-8 hours, PRN Nausea- must attend scheduled appt for additional refills November 29, 2015 1 tablet Results No Known Results Summary Purpose eClinicalWorks Submission
--- OUTSIDE RECORDS SUMMARY | 2019-02-17 01:17 | XMS REPORT ---
Author Author MONICA CACERES Organization [employer] Address Unknown Phone Unavailable Care Team Providers Care History Card Clerk Name Role Phone MONICA CACERES CP Unavailable [...]
--- OUTSIDE RECORDS SUMMARY | 2019-02-17 01:17 | XMS REPORT ---
Author Author MONICA CACERES Organization [facility] Address [address] [place] [address] Care Team Providers Care Electronic Equipment Repairmen Name Role Phone MONICA CACERES Unavailable PROBLEMS Type Condition ICD9-CM Code [id number] Code Onset Dates Condition Status SNOMED Code Problem Pediatric pre- visit for expectant mother V65.11 Active Problem Dyspepsia K30 Active 862544215 Problem Need for prophylactic vaccination and inoculation, Influenza V04.81 Active 680368175 Problem Long-term use of high-risk medication Z79.899 Active 128791469 Problem Chronic nausea R11.0 Active 638338476 Problem Epigastric pain R10.13 Active 98603303 Problem Diarrhea R19.7 Active 65795112 Problem Dyspepsia R10.13 Active 003542133 Problem Irritable bowel syndrome with diarrhea K58.0 Active 789088909 ALLERGIES No Information SOCIAL HISTORY Never Assessed PLAN OF CARE VITAL SIGNS MEDICATIONS Medication Instructions Dosage Frequency Start Date End Date Duration Status Compazine 5 mg Orally every 6-8 hours, PRN Nausea-MUST HAVE APPT FOR FURTHER REFILLS 1 tablet Active RESULTS No Results PROCEDURES No Known procedures IMMUNIZATIONS No Known Immunizations MEDICAL (GENERAL) HISTORY [...]
--- OUTSIDE RECORDS SUMMARY | 2019-02-17 01:17 | XMS REPORT ---
Author Author MONICA CACERES Organization [employer] Address Unknown Phone Unavailable Care Team Providers Care Corporate Security Officer Name Role Phone MONICA CACERES CP Unavailable [...] R10.13 Active Problem Dyspepsia K30 Active Medications No Known Medications Results No Known Results Summary Purpose eClinicalWorks Submission
--- OUTSIDE RECORDS SUMMARY | 2019-02-17 01:17 | XMS REPORT ---
Author Author MONICA CACERES Organization [employer] Address Unknown Phone Unavailable Care Team Providers Care Pattern Data Operator Name Role Phone MONICA CACERES CP Unavailable Allergies, Adverse Reactions, Alerts Substance Reaction Event Type Benadryl allergic to the red dye in this med Drug Allergy Problems Problem Type Condition Code Onset Dates Condition Status Assessment Diarrhea R19.7 Active Problem Dyspepsia K30 Active Problem Diarrhea R19.7 Active Problem Epigastric pain R10.13 Active Assessment Epigastric pain R10.13 Active Assessment Dyspepsia K30 Active Problem Need for prophylactic vaccination and inoculation, Influenza V04.81 Active Problem Pediatric pre- visit for expectant mother V65.11 Active Medications Medication Code System Code Instructions Start Date End Date Status Dosage Tri-Sprintec [facility] [address]-07 0.18/0.215/0.25 MG-35 MCG Orally Once a day 1 tablet Loxapine Succinate [facility] [address]-37 10 MG Orally Twice a day 1 capsule Wellbutrin [facility] [address]-21 75 MG Orally Twice a day 1 tablet Omeprazole [facility] [address]-08 20 MG Orally Once a day 1 capsule Klonopin [facility] [address]-07 1 MG Orally 3 times a day 0.5 tablet Propranolol HCl [facility] [address]-60 20 MG Orally 3 times a day 1.5 tablet Procedures Procedure Coding System Code Date Office Visit, Est Pt., Level 3 CPT-4 55221 Jun 21, 2015 Vital Signs Date/Time: Jun 21, 2015 Temperature 97.8 F Weight 102.5 lbs Height 61 in BMI 19.37 Index Blood Pressure Diastolic 70 mmHg Blood Pressure Systolic 112 mmHg Cardiac Monitoring Heart Rate 82 bpm Results No Known Results Summary Purpose eClinicalWorks Submission
--- OUTSIDE RECORDS SUMMARY | 2019-02-17 01:17 | XMS REPORT ---
Author Author KEVIN JEREZ [facility] Address [address] [place] [address] Care Team Providers Care Java Security Engineer Name Role Phone MERI KEVIN Unavailable PROBLEMS Type Condition ICD9-CM Code OSS70-PL Code Onset Dates Condition Status SNOMED Code Problem Dyspepsia K30 Active 998203525 Problem Long-term use of high-risk medication Z79.899 Active 248102936 Problem Chronic nausea R11.0 Active 993844809 Problem Epigastric pain R10.13 Active 42225030 Problem Diarrhea R19.7 Active 90486968 Problem Dyspepsia R10.13 Active 548405473 Problem Irritable bowel syndrome with diarrhea K58.0 Active 358704275 ALLERGIES No Information ENCOUNTERS Encounter Location Date Diagnosis [place] [address] [id number] [place] [address] Jul, [address] [address] Jul, Chronic nausea R11.0 [place] [address] [id number] [place] [address] Jun, Irritable bowel syndrome with diarrhea K58.0 ; Chronic nausea R11.0 ; Dyspepsia R10.13 ; Long-term use of high-risk medication Z79.899 and Viral gastroenteritis A08.4 [place] [id number] [place] [address] Jun, Fever, unspecified fever cause R50.9 and Gastroenteritis K52.9 [place] [address] [id number] [place] [address] Jun, [place] [address] [address] Jun, [place] [address] [id number] [place] [address] May, Encounter for immunization Z23 [facility] [address] [address] Apr, Bronchitis J40 ; Cough R05 and Nausea R11.[address] [address] Apr, [place] [address] [address] Jan, Chronic nausea R11.[address] [address] Jan, Irritable bowel syndrome with diarrhea K58.0 ; Chronic nausea R11.0 ; Dyspepsia R10.13 and Long-term use of high-risk medication Z79.899 [place] [address] [address] Dec, Irritable bowel syndrome with diarrhea K58.[address] [facility] [place] [address] [address] November, Acute upper respiratory infection, unspecified J06.9 ; Fever R50.9 and Influenza B J10.[address] [address] Oct, Chronic nausea R11.0 [place] [address] [address] Sep, Irritable bowel syndrome with diarrhea K58.0 ; Chronic nausea R11.0 ; Dyspepsia R10.13 and Long-term use of high-risk medication Z79.899 [place] [id number] [place] [address] Aug, [place] [address] [address] Jul, Acute non-recurrent frontal sinusitis J01.10 [facility] [address] [address] Jul, [facility] [address] [place] [address] Jun, [facility] [id number] [place] [address] Jun, Bronchitis J40 [facility] [id number] [place] [address] May, [facility] [id number] [place] [address] May, Irritable bowel syndrome with diarrhea K58.0 ; Chronic nausea R11.0 ; Dyspepsia R10.13 and Long-term use of high-risk medication Z79.899 [facility] [id number] [place] [address] May, [facility] [address] [place] [address] Apr, [facility] [id number] [place] [address] Apr, [facility] [address] [address] Feb, [facility] [address] [place] [address] Jan, Irritable bowel syndrome with diarrhea K58.0 ; Chronic nausea R11.0 and Dyspepsia R10.13 [facility] [address] [place] [address] Jan, [facility] [id number] [place] [address] Jan, [facility] [address] [place] [address] Jan, [facility] [address] [place] [address] November, [facility] [id number] [place] [address] November, Epigastric pain R10.13 and Diarrhea R19.7 [facility] [address] [place] [address] November, Epigastric pain R10.13 [facility] [id number] [place] [address] November, [facility] [id number] [place] [address] November, [facility] [id number] [place] [address] Jun, Epigastric pain R10.13 ; Dyspepsia K30 and Diarrhea R19.7 [facility] [id number] [place] [address] Apr, Epigastric pain R10.13 and Dyspepsia K30 [facility] [id number] [place] [address] Apr, Epigastric pain R10.13 ; Dyspepsia K30 and Change in bowel function R19.4 [facility] [address] [place] [address] Apr, [facility] [address] [place] [address] Apr, [facility] [address] [place] [address] Apr, [facility] [id number] [place] [address] Apr, [facility] [address] [place] [address] May, [facility] [id number] [address] May, [facility] [address] [facility] [id number] [place] [address] Mar, [facility] [address] [facility] [id number] [place] [address] Sep, IMMUNIZATIONS Vaccine Route Administration Date Status FLUARIX QUAD (3 AND UP) 2016 IM Intramuscular May 21, 2017 Administered SOCIAL HISTORY Never Assessed REASON FOR VISIT Flu shot PLAN OF CARE VITAL SIGNS MEDICATIONS Unknown Medications RESULTS No Results PROCEDURES Procedure Date Ordered Result Body Site FLUARIX QUAD (3 AND UP) 2017 May 21, 2017 SINGLE IMMUNIZATION ADMIN May 21, 2017 INSTRUCTIONS MEDICATIONS ADMINISTERED No Known Medications [...]
--- OUTSIDE RECORDS SUMMARY | 2019-02-17 01:17 | XMS REPORT ---
Author Author MONICA CACERES Organization [employer] Address Unknown Phone Unavailable Care Team Providers Care Education Specialist Name Role Phone MONICA CACERES CP Unavailable Allergies, Adverse Reactions, Alerts Substance Reaction Event Type Benadryl allergic to the red dye in this med Drug Allergy Problems Problem Type Condition Code Onset Dates Condition Status Problem Pediatric pre- visit for expectant mother V65.11 Active Assessment Epigastric pain R10.13 Active Problem Need for prophylactic vaccination and inoculation, Influenza V04.81 Active Assessment Dyspepsia K30 Active Medications Medication Code System Code Instructions Start Date End Date Status Dosage Klonopin [facility] [address]-01 1 MG Orally 3 times a day 0.5 tablet Tri-Sprintec [facility] [address]-48 0.18/0.215/0.25 MG-35 MCG Orally Once a day 1 tablet Propranolol HCl [facility] [address]-59 20 MG Orally 3 times a day 1.5 tablet Wellbutrin [facility] [address]-95 75 MG Orally Twice a day 1 tablet Loxapine Succinate [facility] [address]-27 10 MG Orally Twice a day 1 capsule Omeprazole [facility] [address]-13 20 MG Orally Once a day May 02, 2015 1 capsule Procedures Procedure Coding System Code Date Office Visit, Est Pt., Level 3 CPT-4 03224 May 17, 2015 Vital Signs Date/Time: May 17, 2015 Temperature 99.2 F Weight 104.8 lbs Height 61 in BMI 19.80 Index Blood Pressure Diastolic 72 mmHg Blood Pressure Systolic 104 mmHg Cardiac Monitoring Heart Rate 80 bpm Results No Known Results Summary Purpose [employer] Submission
--- OUTSIDE RECORDS SUMMARY | 2019-02-17 01:17 | XMS REPORT ---
Author Author MONICA CACERES [facility] Address [address] [place] [address] Care Team Providers Care Business Administration Teacher Name Role Phone MONICA CACERES Unavailable PROBLEMS Type Condition ICD9-CM Code UEI47-TR Code Onset Dates Condition Status SNOMED Code Problem Pediatric pre- visit for expectant mother V65.11 Active Problem Dyspepsia K30 Active 298266132 Problem Need for prophylactic vaccination and inoculation, Influenza V04.81 Active 915797011 Problem Long-term use of high-risk medication Z79.899 Active 445895148 Problem Chronic nausea R11.0 Active 785027985 Problem Epigastric pain R10.13 Active 04008278 Problem Diarrhea R19.7 Active 60385901 Problem Dyspepsia R10.13 Active 756504765 Problem Irritable bowel syndrome with diarrhea K58.0 Active 733089130 ALLERGIES Unknown Allergies SOCIAL HISTORY No smoking Hx information available PLAN OF CARE VITAL SIGNS MEDICATIONS Medication Instructions Dosage Frequency Start Date End Date Duration Status Compazine 5 mg Orally every 6-8 hours, PRN Nausea-MUST HAVE APPT FOR FURTHER REFILLS 1 tablet Active RESULTS No Results PROCEDURES No Known procedures IMMUNIZATIONS No Known Immunizations
--- OUTSIDE RECORDS SUMMARY | 2019-02-17 01:17 | XMS REPORT ---
Author Author AMRITA Gibson Organization [facility] Address [address] [place] [address] Care Team Providers Care Instrumentation Designer Name Role Phone AMRITA Gibson Unavailable PROBLEMS Type Condition ICD9-CM Code [id number] Code Onset Dates Condition Status SNOMED Code Problem Dyspepsia K30 Active 479711795 Problem Long-term use of high-risk medication Z79.899 Active 066504747 Problem Chronic nausea R11.0 Active 982732431 Problem Epigastric pain R10.13 Active 50399805 Problem Diarrhea R19.7 Active 76376725 Problem Dyspepsia R10.13 Active 815886257 Problem Irritable bowel syndrome with diarrhea K58.0 Active 453684460 ALLERGIES Substance Reaction Event Type Date Status Benadryl allergic to the red dye in this med Drug Allergy Apr, Active ENCOUNTERS Encounter Location Date Diagnosis [place] [address] [address] Jul, [place] [address] [address] Jul, Chronic nausea R11.0 [place] [address] [address] Jun, Irritable bowel syndrome with diarrhea K58.0 ; Chronic nausea R11.0 ; Dyspepsia R10.13 ; Long-term use of high-risk medication Z79.899 and Viral gastroenteritis A08.4 [place] [address] [address] 11 Jun, 2017 Fever, unspecified fever cause R50.9 and Gastroenteritis K52.9 [place] [address] [address] Jun, [facility] [address] [place] [id number] [place] [address] Jun, [facility] [address] [address] May, Encounter for immunization Z23 [facility] [address] [address] Apr, Bronchitis J40 ; Cough R05 and Nausea R11.0 [facility] [address] [address] Apr, [place] [address] [address] Jan, Chronic nausea R11.0 [place] [address] [address] Jan, Irritable bowel syndrome with diarrhea K58.0 ; Chronic nausea R11.0 ; Dyspepsia R10.13 and Long-term use of high-risk medication Z79.899 [place] [id number] [place] [address] Dec, Irritable bowel syndrome with diarrhea K58.[address] [facility] [id number] [place] [address] November, Acute upper respiratory infection, unspecified J06.9 ; Fever R50.9 and Influenza B J10.1 [place] [id number] [place] [address] Oct, Chronic nausea R11.0 [place] [address] [address] [id number] [place] [address] Sep, Irritable bowel syndrome with diarrhea K58.0 ; Chronic nausea R11.0 ; Dyspepsia R10.13 and Long-term use of high-risk medication Z79.899 [place] [id number] [place] [address] Aug, [facility] [address] [address] Jul, Acute non-recurrent frontal sinusitis J01.10 [facility] [address] [address] Jul, [facility] [address] [place] [address] Jun, [facility] [address] [place] [address] [id number] [place] [address] Jun, Bronchitis J40 [facility] [address] [id number] [place] [address] May, [facility] [address] [place] [address] May, Irritable bowel syndrome with diarrhea K58.0 ; Chronic nausea R11.0 ; Dyspepsia R10.13 and Long-term use of high-risk medication Z79.899 [facility] [address] [address] May, [facility] [address] [address] Apr, [facility] [address] [address] Apr, [facility] [address] [address] Feb, [facility] [address] [address] Jan, Irritable bowel syndrome with diarrhea K58.0 ; Chronic nausea R11.0 and Dyspepsia R10.13 [facility] [address] [address] Jan, [facility] [address] [address] Jan, [facility] [address] [address] Jan, [facility] [address] [address] November, [facility] [address] [address] November, Epigastric pain R10.13 and Diarrhea R19.7 [facility] [address] [address] November, Epigastric pain R10.13 [facility] [address] [address] November, [facility] [address] [address] November, [facility] [address] [address] Jun, Epigastric pain R10.13 ; Dyspepsia K30 and Diarrhea R19.7 [facility] [address] [address] Apr, Epigastric pain R10.13 and Dyspepsia K30 [facility] [address] [address] Apr, Epigastric pain R10.13 ; Dyspepsia K30 and Change in bowel function R19.4 [facility] [address] [address] Apr, [facility] [address] [address] Apr, [facility] [address] [address] Apr, [facility] [address] [address] Apr, [facility] [address] [id number] [address] May, [facility] [address] [facility] [id number] [address] May, [facility] [address] [facility] [id number] [address] Mar, [facility] [address] [facility] [id number] [address] Sep, IMMUNIZATIONS No Known Immunizations SOCIAL HISTORY Never Assessed REASON FOR VISIT head and chest congestion, productive cough that is yellow-greenish tinged sputu m, vomiting since last noc. [email or web address] PLAN OF CARE Activity Details Follow Up 2 Weeks, prn Reason: VITAL SIGNS Height 61 in 2017-05-18 Weight 115.6 lbs 2017-05-18 Temperature 98.7 degrees Fahrenheit 2017-05-18 Heart Rate 88 bpm 2017-05-18 Respiratory Rate 20 2017-05-18 BMI 21.84 kg/m2 2017-05-18 Blood pressure systolic 102 mmHg 2017-05-18 Blood pressure diastolic 76 mmHg 2017-05-18 MEDICATIONS Medication Instructions Dosage Frequency Start Date End Date Duration Status Zofran 4 MG Orally every 8 hours, PRN 1 tablets Jan, Active Tri-Sprintec 0.18/0.215/0.25 MG-35 MCG Orally Once a day 1 tablet 24h Active Propranolol HCl 20 MG Orally 3 times a day 1.5 tablet 8h Active Compazine 5 mg Orally every 6-8 hours, PRN Nausea-Must have appt for refills 1 tablet Active Zofran 4 MG Orally every 4-6 hours as needed 1 tablets Apr, 07 days Active ProAir HFA 108 (90 Base) MCG/ACT Inhalation every 6 hrs 2 puffs as needed 6h Apr, Active Klonopin 1 MG Orally 3 times a day 1 tablet 8h Active Tramadol HCl 50 MG Orally every 6 hrs prn must last 3 months 1 tablet as needed Active Loxapine Succinate 10 mg Orally Once a day in the evening 1 capsule days Active Azithromycin 500 mg Orally Once a day one tablet 24h Apr, Active Protonix 40 mg Orally Once a day 1 tablet 24h Active Zofran 4 MG Orally every 4-6 hours as needed 12 tablets Apr, 10 days Active Azithromycin 500 mg Orally Once a day as directed 24h Apr, May, 4 days Active RESULTS No Results PROCEDURES No Known [...]
--- OUTSIDE RECORDS SUMMARY | 2019-02-17 01:18 | XMS REPORT ---
Author Author MONICA CACERES Organization [facility] Address [address] [place] [address] Care Team Providers Care Editor Sound Name Role Phone MONICA CACERES Unavailable PROBLEMS Type Condition ICD9-CM Code VHC66-JT Code Onset Dates Condition Status SNOMED Code Problem Dyspepsia K30 Active 281245107 Problem Long-term use of high-risk medication Z79.899 Active 098025919 Problem Chronic nausea R11.0 Active 374515431 Problem Epigastric pain R10.13 Active 59331888 Problem Diarrhea R19.7 Active 00752648 Problem Dyspepsia R10.13 Active 611445281 Problem Irritable bowel syndrome with diarrhea K58.0 Active 903807835 ALLERGIES No Information ENCOUNTERS Encounter Location Date Diagnosis [place] [id number] [place] [address] Jul, [place] [address] [address] 15 Jul, 2017 Chronic nausea R11.0 [place] [id number] [place] [address] 13 Jun, 2017 Irritable bowel syndrome with diarrhea K58.0 ; Chronic nausea R11.0 ; Dyspepsia R10.13 ; Long-term use of high-risk medication Z79.899 and Viral gastroenteritis A08.4 [place] [id number] [place] [address] 11 Jun, 2017 Fever, unspecified fever cause R50.9 and Gastroenteritis K52.9 [place] [id number] [place] [address] 05 Jun, 2017 [place] [address] [address] Jun, [facility] [id number] [place] [address] May, Encounter for immunization Z23 [facility] [id number] [place] [address] Apr, Bronchitis J40 ; Cough R05 and Nausea R11.[address] [address] Apr, [place] [address] [address] Jan, Chronic nausea R11.0 [place] [address] [address] Jan, Irritable bowel syndrome with diarrhea K58.0 ; Chronic nausea R11.0 ; Dyspepsia R10.13 and Long-term use of high-risk medication Z79.899 [place] [id number] [place] [address] Dec, Irritable bowel syndrome with diarrhea K58.0 [facility] IN [facility] [id number] [place] [address] November, Acute upper respiratory infection, unspecified J06.9 ; Fever R50.9 and Influenza B J10.1 [place] [id number] [place] [address] Oct, Chronic nausea R11.0 [place] [id number] [place] [address] Sep, Irritable bowel syndrome with diarrhea K58.0 ; Chronic nausea R11.0 ; Dyspepsia R10.13 and Long-term use of high-risk medication Z79.899 [place] [id number] [place] [address] Aug, [place] [address] [address] Jul, Acute non-recurrent frontal sinusitis J01.10 [facility] [id number] [place] [address] Jul, [facility] [id number] [place] [address] Jun, [facility] [id number] [place] [address] Jun, Bronchitis J40 [facility] [id number] [place] [address] May, [facility] [id number] [place] [address] May, Irritable bowel syndrome with diarrhea K58.0 ; Chronic nausea R11.0 ; Dyspepsia R10.13 and Long-term use of high-risk medication Z79.899 [facility] [id number] [place] [address] May, [facility] [id number] [place] [address] Apr, [facility] [id number] [place] [address] Apr, [facility] [id number] [place] [address] Feb, [facility] [id number] [place] [address] Jan, Irritable bowel syndrome with diarrhea K58.0 ; Chronic nausea R11.0 and Dyspepsia R10.13 [facility] [id number] [place] [address] Jan, [facility] [id number] [place] [address] Jan, [facility] [id number] [place] [address] Jan, [facility] [address] [address] November, [facility] [id number] [place] [address] November, Epigastric pain R10.13 and Diarrhea R19.7 [facility] [id number] [address] November, Epigastric pain R10.13 [facility] [id number] [place] [address] November, [facility] [id number] [place] [address] November, [facility] [id number] [place] [address] Jun, Epigastric pain R10.13 ; Dyspepsia K30 and Diarrhea R19.7 [facility] [address] [place] [address] Apr, Epigastric pain R10.13 and Dyspepsia K30 [facility] [id number] [place] [address] Apr, Epigastric pain R10.13 ; Dyspepsia K30 and Change in bowel function R19.4 [facility] [address] [address] Apr, [facility] [address] [address] Apr, [facility] [address] [address] Apr, [facility] [address] [address] Apr, [facility] [address] [address] May, [facility] [address] [id number] [place] [address] May, [facility] [address] [facility] [id number] [place] [address] Mar, [facility] [address] [facility] [id number] [place] [address] Sep, IMMUNIZATIONS No Known Immunizations SOCIAL HISTORY Never Assessed REASON FOR VISIT Refill request PLAN OF CARE VITAL SIGNS MEDICATIONS Unknown Medications RESULTS No Results PROCEDURES No Known [...]
--- OUTSIDE RECORDS SUMMARY | 2019-02-17 01:18 | XMS REPORT ---
Author Author ZACK VERGARA [facility] Address [address] [place] [address] Care Team Providers Care Plaster Applicator Name Role Phone ZACK VERGARA Unavailable PROBLEMS Type Condition ICD9-CM Code MOV38-JA Code Onset Dates Condition Status SNOMED Code Problem Pediatric pre- visit for expectant mother V65.11 Active Problem Diarrhea R19.7 Active 29331559 Problem Need for prophylactic vaccination and inoculation, Influenza V04.81 Active 185685691 Problem Long-term use of high-risk medication Z79.899 Active 970508352 Problem Irritable bowel syndrome with diarrhea K58.0 Active 026838346 Problem Epigastric pain R10.13 Active 44152754 Problem Dyspepsia K30 Active 141115435 Problem Chronic nausea R11.0 Active 773361141 Problem Dyspepsia R10.13 Active 276476472 ALLERGIES Unknown Allergies SOCIAL HISTORY No smoking Hx information available PLAN OF CARE VITAL SIGNS MEDICATIONS Unknown Medications RESULTS No Results PROCEDURES No Known procedures IMMUNIZATIONS No Known Immunizations
--- OUTSIDE RECORDS SUMMARY | 2019-02-17 01:18 | XMS REPORT ---
Author Author MONICA CACERES Organization [employer] Address Unknown Phone Unavailable Care Team Providers Care Supervisor Locomotive Name Role Phone MONICA CACERES CP Unavailable [...]
--- OUTSIDE RECORDS SUMMARY | 2019-02-17 01:18 | XMS REPORT ---
Author Author AMRITA LANDAVERDE Organization [facility] Address [address] [place] [address] Care Team Providers Care Substance Abuse Therapist Name Role Phone AMRITA LANDAVERDE Unavailable PROBLEMS Type Condition ICD9-CM Code [id number] Code Onset Dates Condition Status SNOMED Code Problem Pediatric pre- visit for expectant mother V65.11 Active Problem Dyspepsia K30 Active 480311203 Problem Need for prophylactic vaccination and inoculation, Influenza V04.81 Active 974713424 Problem Long-term use of high-risk medication Z79.899 Active 511423873 Problem Chronic nausea R11.0 Active 307595429 Problem Epigastric pain R10.13 Active 06240155 Problem Diarrhea R19.7 Active 76801861 Problem Dyspepsia R10.13 Active 126102079 Problem Irritable bowel syndrome with diarrhea K58.0 Active 002202831 ALLERGIES Substance Reaction Event Type Date Status Benadryl allergic to the red dye in this med Drug Allergy Jul, Active SOCIAL HISTORY No smoking Hx information available PLAN OF CARE Activity Details Follow Up 2 - 3 Days, prn Reason: VITAL SIGNS Height 61 in 2016-08-04 Weight 98.8 lbs 2016-08-04 Temperature 98.5 degrees Fahrenheit 2016-08-04 Heart Rate 78 bpm 2016-08-04 Respiratory Rate 20 2016-08-04 BMI 18.67 kg/m2 2016-08-04 Blood pressure systolic 112 mmHg 2016-08-04 Blood pressure diastolic 78 mmHg 2016-08-04 MEDICATIONS Medication Instructions Dosage Frequency Start Date End Date Duration Status Propranolol HCl 20 MG Orally 3 times a day 1.5 tablet 8h Active Klonopin 1 MG Orally 3 times a day 1 tablet 8h Active Tri-Sprintec 0.18/0.215/0.25 MG-35 MCG Orally Once a day 1 tablet 24h Active Compazine 5 mg Orally every 6-8 hours, PRN Nausea-MUST HAVE APPT FOR FURTHER REFILLS 1 tablet Active Protonix 40 mg Orally Once a day 1 tablet 24h Active Tramadol HCl 50 MG Orally every 6 hrs prn must last 3 months 1 tablet as needed May, Active Loxapine Succinate 10 mg Orally Once a day in the evening 1 capsule Active Sucralfate 1 gram Orally 3 times a day 1 tablet 8h Active Tessalon Perles 100 MG Orally Three times a day 1 capsule as needed 8h Jun, Active Augmentin 875-125 MG Orally every 12 hrs 1 tablet 12h Jul, Jul, 10 day(s) Active RESULTS No Results PROCEDURES Procedure Date Ordered Related Diagnosis Body Site Office Visit, Est Pt., Level 3 Aug 04, 2016 DEXAMETHASONE 4MG/ML (PER 1 MG) Aug 04, 2016 THER/PROPH/DIAG INJ, SC/IM Aug 04, 2016 IMMUNIZATIONS Vaccine Route Administration Date Status DEXAMETHASONE 4MG/ML (PER 1 MG) IM Intramuscular Aug 04, 2016 Administered
--- OUTSIDE RECORDS SUMMARY | 2019-02-17 01:18 | XMS REPORT ---
Author Author MONICA CACERES Organization [employer] Address Unknown Phone Unavailable Care Team Providers Care Supervisor Weaving Name Role Phone MONICA CACERES CP Unavailable Allergies, Adverse Reactions, Alerts Substance Reaction Event Type Benadryl allergic to the red dye in this med Drug Allergy Problems Problem Type Condition Code Onset Dates Condition Status Problem Pediatric pre- visit for expectant mother V65.11 Active Assessment Epigastric pain R10.13 Active Problem Need for prophylactic vaccination and inoculation, Influenza V04.81 Active Assessment Dyspepsia K30 Active Assessment Change in bowel function R19.4 Active Medications Medication Code System Code Instructions Start Date End Date Status Dosage Tri-Sprintec [facility] [address]-53 0.18/0.215/0.25 MG-35 MCG Orally Once a day 1 tablet Klonopin [facility] [address]-01 1 MG Orally 3 times a day 0.5 tablet Omeprazole [facility] [address]-74 20 MG Orally Once a day May 02, 2015 1 capsule Propranolol HCl [facility] [address]-83 20 MG Orally 3 times a day 1.5 tablet Wellbutrin [facility] [address]-25 75 MG Orally Twice a day 1 tablet Haloperidol [facility] [address]-48 5 MG Orally Once a day 1 tablet Procedures Procedure Coding System Code Date [facility] NO[facility] May 02, 2015 Office Visit, New Pt., Level 4 CPT-4 65875 May 02, 2015 IMMUNOASSAY,INFECTIOUS AGENT CPT-4 72736 May 02, 2015 VENIPUNCT, ROUTINE* CPT-4 75274 May 02, 2015 Vital Signs Date/Time: May 02, 2015 Cardiac Monitoring Heart Rate 80 bpm Temperature 97.9 F Weight 101.5 lbs Blood Pressure Diastolic 74 mmHg Blood Pressure Systolic 110 mmHg Results Name Result Date Reference Range Unit Abnormality Flag ROUTINE VENIPUNCTURE H PYLORI (IN HOUSE) Summary Purpose [employer] Submission
--- OUTSIDE RECORDS SUMMARY | 2019-02-17 01:18 | XMS REPORT ---
Author Author AMRITA Gibson Organization [facility] Address [address] [place] [address] Care Team Providers Care Behavior Therapist Name Role Phone AMRITA Gibson Unavailable PROBLEMS Type Condition ICD9-CM Code RTF69-HE Code Onset Dates Condition Status SNOMED Code Problem Dyspepsia K30 Active 094984690 Problem Long-term use of high-risk medication Z79.899 Active 503323727 Problem Chronic nausea R11.0 Active 972311660 Problem Epigastric pain R10.13 Active 59217405 Problem Diarrhea R19.7 Active 41151299 Problem Dyspepsia R10.13 Active 446879951 Problem Irritable bowel syndrome with diarrhea K58.0 Active 474879092 ALLERGIES Substance Reaction Event Type Date Status Benadryl allergic to the red dye in this med Drug Allergy Jun, Active ENCOUNTERS Encounter Location Date Diagnosis [place] [address] [address] Jul, [place] [address] [address] Jul, Chronic nausea R11.0 [place] [address] [address] Jun, Irritable bowel syndrome with diarrhea K58.0 ; Chronic nausea R11.0 ; Dyspepsia R10.13 ; Long-term use of high-risk medication Z79.899 and Viral gastroenteritis A08.4 [place] [address] [address] Jun, Fever, unspecified fever cause R50.9 and Gastroenteritis K52.9 [place] [address] [address] Jun, [facility] [id number] [place] [address] Jun, [facility] [address] [address] May, Encounter for immunization Z23 [facility] [address] [address] Apr, Bronchitis J40 ; Cough R05 and Nausea R11.0 [facility] [address] [address] Apr, [place] [address] [address] Jan, Chronic nausea R11.0 [place] [address] [address] Jan, Irritable bowel syndrome with diarrhea K58.0 ; Chronic nausea R11.0 ; Dyspepsia R10.13 and Long-term use of high-risk medication Z79.899 [place] [id number] [place] [address] Dec, Irritable bowel syndrome with diarrhea K58.0 [facility] IN [facility] [address] [id number] [place] [address] November, Acute upper respiratory infection, unspecified J06.9 ; Fever R50.9 and Influenza B J10.1 [place] [address] [id number] [place] [address] Oct, Chronic nausea R11.0 [place] [address] [id number] [place] [address] Sep, Irritable bowel syndrome with diarrhea K58.0 ; Chronic nausea R11.0 ; Dyspepsia R10.13 and Long-term use of high-risk medication Z79.899 [place] [id number] [place] [address] Aug, [facility] [address], [place] [address] Jul, Acute non-recurrent frontal sinusitis J01.10 [facility] [address], [place] [address] Jul, [facility] [address] [place] [address] Jun, [facility] [address] [id number] [place] [address] Jun, Bronchitis J40 [facility] [address] [id number] [place] [address] May, [facility] [address] [place] [address] May, Irritable bowel syndrome with diarrhea K58.0 ; Chronic nausea R11.0 ; Dyspepsia R10.13 and Long-term use of high-risk medication Z79.899 [facility] [address], [place] [address] May, [facility] [address], [place] [address] Apr, [facility] [address], [place] [address] Apr, [facility] [address], [place] [address] Feb, [facility] [address], [place] [address] Jan, Irritable bowel syndrome with diarrhea K58.0 ; Chronic nausea R11.0 and Dyspepsia R10.13 [facility] [address], [place] [address] Jan, [facility] [address] [place] [address] Jan, [facility] [address], [place] [address] Jan, [facility] [address], [place] [address] November, [facility] [address], [place] [address] November, Epigastric pain R10.13 and Diarrhea R19.7 [facility] [address] [place] [address] November, Epigastric pain R10.13 [facility] [address], [place] [address] November, [facility] [address], [place] [address] November, [facility] [address], [place] [address] Jun, Epigastric pain R10.13 ; Dyspepsia K30 and Diarrhea R19.7 [facility] [address] [place] [address] Apr, Epigastric pain R10.13 and Dyspepsia K30 [facility] [address], [place] [address] Apr, Epigastric pain R10.13 ; Dyspepsia K30 and Change in bowel function R19.4 [facility] [address] [place] [address] Apr, [facility] [address] [place] [address] Apr, [facility] [id number], [place] [address] Apr, [facility] [address], [place] [address] Apr, [facility] [id number] [address] May, [facility] [address] [facility] [id number] [address] May, [facility] [address] [facility] [id number] [address] Mar, [facility] [address] [facility] [id number] [address] Sep, IMMUNIZATIONS Vaccine Route Administration Date Status ZOFRAN (IM) 2 MG/ML (PER 1 MG) 40 MG/20 ML IM Intramuscular Jun 29, 2017 Administered SOCIAL HISTORY Never Assessed REASON FOR VISIT Nausea/vomiting/diarrhea/ high fever at home 102 / body ache x since yesterday -- arabella landis PLAN OF CARE Activity Details Follow Up 2 - 3 Days Reason:prn fever, gi issues VITAL SIGNS Height 61 in 2017-06-29 Weight 112.0 lbs 2017-06-29 Temperature 98.0 degrees Fahrenheit 2017-06-29 Heart Rate 70 bpm 2017-06-29 Respiratory Rate 18 2017-06-29 BMI 21.16 kg/m2 2017-06-29 Blood pressure systolic 100 mmHg 2017-06-29 Blood pressure diastolic 68 mmHg 2017-06-29 MEDICATIONS Medication Instructions Dosage Frequency Start Date End Date Duration Status Tamiflu 75 MG Orally Twice a day 1 capsule h November, 5 day(s) Not-Taking Tri-Sprintec 0.18/0.215/0.25 MG-35 MCG Orally Once a day 1 tablet 24h Active Compazine 5 mg Orally every 6-8 hours, PRN Nausea-Must have appt for refills 1 tablet Active Propranolol HCl 20 MG Orally 3 times a day 1.5 tablet 8h Active Protonix 40 mg Orally Once a day 1 tablet 24h Active Tramadol HCl 50 MG Orally every 6 hrs prn must last 3 months 1 tablet as needed Active ProAir HFA 108 (90 Base) MCG/ACT Inhalation every 6 hrs 2 puffs as needed 6h 30 Apr, 2017 Active Zofran 4 MG Orally every 4 hours prn 1 tablets Jun, 10 days Active Klonopin 1 MG Orally 3 times a day 1 tablet 8h Active Loxapine Succinate 10 mg Orally Once a day in the evening 1 capsule 28 days Active Zofran 4 MG Orally every 4-6 hours as needed 1 tablets Apr, 07 days Active Sucralfate 1 gm/10ml Orally 3 times a day 1 tablet 8h Not-Taking Tessalon Perles 100 mg Orally Three times a day 1 capsule as needed 8h November, Not-Taking Zofran 4 MG Orally every 8 hours, PRN 1 tablets Jan, Active Azithromycin 500 mg Orally Once a day one tablet 24h Apr, Active Zofran 4 MG Orally every 4-6 hours as needed 12 tablets Apr, 10 days Active RESULTS Name Result Date Reference Range INFLUENZA A & B (IN HOUSE) 2017-06-29 INFLUENZA A Negative INFLUENZA B Negative Control + Lot # [id number] Exp date 06/05/19 PROCEDURES Procedure Date Ordered Result Body Site ZOFRAN (IM) 2 MG/ML (PER 1 MG) 40 MG/20 ML Jun 29, 2017 THER/PROPH/DIAG INJ, SC/IM Jun 29, 2017 INFLUENZA ASSAY W/OPTIC Jun 29, 2017 INSTRUCTIONS MEDICATIONS ADMINISTERED No Known Medications [...]
--- OUTSIDE RECORDS SUMMARY | 2019-02-17 01:18 | XMS REPORT ---
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[employer] Name Role Phone MONICA CACERES Unavailable Allergies, Adverse Reactions, Alerts Substance Reaction Event Type Benadryl allergic to the red dye in this med Drug Allergy Problems Problem Type Condition Code Onset Dates Condition Status Assessment Irritable bowel syndrome with diarrhea K58.0 Active Problem Need for prophylactic vaccination and inoculation, Influenza V04.81 Active Problem Pediatric pre- visit for expectant mother V65.11 Active Problem Irritable bowel syndrome with diarrhea K58.0 Active Problem Chronic nausea R11.0 Active Problem Long-term use of high-risk medication Z79.899 Active Problem Dyspepsia K30 Active Problem Diarrhea R19.7 Active Problem Dyspepsia R10.13 Active Problem Epigastric pain R10.13 Active Assessment Long-term use of high-risk medication Z79.899 Active Assessment Dyspepsia R10.13 Active Assessment Chronic nausea R11.0 Active Medications Medication Code System Code Instructions Start Date End Date Status Dosage Compazine [facility] [address]-47 5 mg Orally every 6-8 hours, PRN Nausea- 1 tablet Tramadol HCl [facility] [address]-70 50 MG Orally every 6 hrs prn must last 3 months May 28, 2016 1 tablet as needed Propranolol HCl [facility] [address]-95 20 MG Orally 3 times a day 1.5 tablet Protonix [facility] [address]-17 40 mg Orally Once a day 1 tablet Klonopin [facility] [address]-39 1 MG Orally 3 times a day 1 tablet Sucralfate [facility] [address]-82 1 gram Orally 3 times a day 1 tablet Tri-Sprintec [facility] [address]-87 0.18/0.215/0.25 MG-35 MCG Orally Once a day 1 tablet Loxapine Succinate [facility] [address]-56 10 mg Orally Once a day in the evening 1 capsule Procedures Procedure Coding System Code Date COMPREHEN METABOLIC PANEL CPT-4 01496 May 28, 2016 Office Visit, Est Pt., Level 4 CPT-4 16159 May 28, 2016 COMPLETE CBC W/AUTO DIFF WBC CPT-4 24895 May 28, 2016 VENIPUNCT, ROUTINE* CPT-4 94184 May 28, 2016 Vital Signs Date/Time: May 28, 2016 Cardiac Monitoring Heart Rate 60 bpm Weight 105 lbs Height 61 in BMI 19.84 Index Blood Pressure Diastolic 68 mmHg Blood Pressure Systolic 100 mmHg Results Name Result Date Reference Range Unit Abnormality Flag ROUTINE VENIPUNCTURE Summary Purpose eClinicalWorks Submission
--- OUTSIDE RECORDS SUMMARY | 2019-02-17 01:19 | XMS REPORT | Continuity of Care Document ---
Author Organization Unknown Address Unknown Phone Unavailable Allergies Active Description Code Type Severity Reaction Onset Reported/Identified Relationship to Patient Clinical Status Yes No Known Drug Allergies [id number] Drug Allergy Unknown N/A 11/28/2015 Medications There is no data. 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 11/12/2011 Ot 647.61 OTH VIRAL DIS- DELIVERED 11/12/2011 Ot 648.41 MENTAL DISORDER- DELIVER 11/12/2011 Ot 658.41 AMNIOTIC INFECTION- DELIV 11/12/2011 Ot 661.21 UTERINE INERT NEC-DELIV 11/12/2011 Ot V06.1 [id number], COMBINED [ 11/12/2011 Ot V27.0 DELIVER-SINGLE LIVEBORN 05/11/2013 KEVIN JEREZ DO V04.81 FLU SHOT 07/17/2015 SHARI RAM DO Ot K29.70 GASTRITIS, UNSPECIFIED, WITHOUT BLEEDING 07/17/2015 SHARI RAM DO Ot K52.9 NONINFECTIVE GASTROENTERITIS AND COLITIS 07/17/2015 SHARI RAM DO Ot R63.4 ABNORMAL WEIGHT LOSS 07/18/2015 SHARITA RANDLE, DEBBIE Borja Ot D72.829 ELEVATED WHITE BLOOD CELL COUNT, UNSPECI 07/18/2015 SHARITA RANDLE, DEBBIE Borja Ot E07.9 DISORDER OF THYROID, UNSPECIFIED 07/18/2015 SHARITA RANDLE, DEBBIE Borja Ot E86.1 HYPOVOLEMIA 07/18/2015 SHARITA RANDLE, DEBBIE Borja Ot F17.210 NICOTINE DEPENDENCE, CIGARETTES, UNCOMPL 07/18/2015 SHARITA RANDLE, DEBBIE Borja Ot I10 ESSENTIAL (PRIMARY) HYPERTENSION 07/18/2015 SHARITA RANDLE, DEBBIE Borja Ot R10.13 EPIGASTRIC PAIN 07/18/2015 SHARITA RANDLE, DEBBIE Borja Ot R11.2 NAUSEA WITH VOMITING, UNSPECIFIED 07/21/2015 KEVIN JEREZ DO Ot E86.0 DEHYDRATION 07/21/2015 KEVIN JEREZ DO Ot E87.6 HYPOKALEMIA 07/21/2015 RUPA JEREZ DOA K Ot F17.210 NICOTINE DEPENDENCE, CIGARETTES, UNCOMPL 07/21/2015 KEVIN JEREZ DO Ot F32.9 MAJOR DEPRESSIVE DISORDER, SINGLE EPISOD 07/21/2015 KEVIN JEREZ DO Ot F41.9 ANXIETY DISORDER, UNSPECIFIED 07/21/2015 KEVIN JEREZ DO Ot R11.2 NAUSEA WITH VOMITING, UNSPECIFIED 08/29/2015 SHARI RAM DO Ot R10.13 08/29/2015 SHARI RAM DO Ot R11.0 08/29/2015 SHARI RAM DO Ot R19.7 11/28/2015 SHARI RAM DO Ot R10.13 EPIGASTRIC PAIN 11/28/2015 SHARI RAM DO Ot R11.0 NAUSEA 11/28/2015 SHARI RAM DO Ot R19.7 DIARRHEA, UNSPECIFIED 11/28/2015 SHARI RAM DO Ot R10.13 EPIGASTRIC PAIN 11/28/2015 SHARI RAM DO Ot R11.0 NAUSEA 11/28/2015 SHARI RAM DO Ot R19.7 DIARRHEA, UNSPECIFIED 11/28/2015 SHARI RAM DO Ot R63.4 ABNORMAL WEIGHT LOSS 11/28/2015 SHARI RAM DO Ot Z01.818 ENCOUNTER FOR OTHER PREPROCEDURAL EXAMIN 11/29/2015 SHARI RAM DO Ot R10.13 EPIGASTRIC PAIN 11/29/2015 SHARI RAM DO Ot R11.0 NAUSEA 11/29/2015 SHARI RAM DO Ot R19.7 DIARRHEA, UNSPECIFIED 11/29/2015 RAM DO, SHARI D Ot R10.13 EPIGASTRIC PAIN 11/29/2015 RAM DO, SHARI D Ot R11.0 NAUSEA 11/29/2015 RAM DO, SHARI D Ot R19.7 DIARRHEA, UNSPECIFIED 11/29/2015 RAM DO, SHARI D Ot R63.4 ABNORMAL WEIGHT LOSS 11/29/2015 RAM DO, SHARI D Ot Z01.818 ENCOUNTER FOR OTHER PREPROCEDURAL EXAMIN 11/29/2015 RAM DO, SHARI D Ot R10.13 EPIGASTRIC PAIN 11/29/2015 RAM DO, SHARI D Ot R11.0 NAUSEA 11/29/2015 RAM DO, SHARI D Ot R19.7 DIARRHEA, UNSPECIFIED 11/29/2015 RAM DO, SHARI D Ot R10.13 EPIGASTRIC PAIN 11/29/2015 RAM DO, SHARI D Ot R11.0 NAUSEA 11/29/2015 RAM DO, SHARI D Ot R19.7 DIARRHEA, UNSPECIFIED 11/29/2015 [place] DO, SHARI D Ot R63.4 ABNORMAL WEIGHT LOSS 11/29/2015 [place] DO, SHARI D Ot Z01.818 ENCOUNTER FOR OTHER PREPROCEDURAL EXAMIN 11/29/2015 BRANDY PARK MD Ot E87.6 HYPOKALEMIA 11/29/2015 BRANDY PARK MD Ot F20.9 SCHIZOPHRENIA, UNSPECIFIED 11/29/2015 BRANDY PARK MD Ot F32.9 MAJOR DEPRESSIVE DISORDER, SINGLE EPISOD 11/29/2015 BRANDY PARK MD Ot F41.9 ANXIETY DISORDER, UNSPECIFIED 11/29/2015 BRANDY PARK MD Ot G40.909 EPILEPSY, UNSP, NOT INTRACTABLE, WITHOUT 11/29/2015 BRANDY PARK MD Ot K29.70 GASTRITIS, UNSPECIFIED, WITHOUT BLEEDING 11/29/2015 BRANDY PARK MD Ot K52.9 NONINFECTIVE GASTROENTERITIS AND COLITIS 11/29/2015 BRANDY PARK MD Ot Z87.891 PERSONAL HISTORY OF NICOTINE DEPENDENCE 03/05/2017 RAM DO, SHARI D Ot R10.13 EPIGASTRIC PAIN 03/05/2017 RAM DO, SHARI D Ot R11.0 NAUSEA 03/05/2017 RAM SHARI FRAZIER Ot R19.7 DIARRHEA, UNSPECIFIED 03/05/2017 SHARI RAM DO Ot R10.13 EPIGASTRIC PAIN 03/05/2017 SHARI RAM DO Ot R11.0 NAUSEA 03/05/2017 SHARI RAM DO Ot R19.7 DIARRHEA, UNSPECIFIED 03/05/2017 SHARI RAM DO Ot R63.4 ABNORMAL WEIGHT LOSS 03/05/2017 SHARI RAM DO Ot Z01.818 ENCOUNTER FOR OTHER PREPROCEDURAL EXAMIN Procedures Code Description Performed By Performed On 74.1 LOW CERVICAL 11/06/2011 Results Test Result Range CBC With Differential/Platelet - 05/28/16 17:12 WBC 8.5 x10E3/uL 3.4-10.8 RBC 4.80 x10E6/uL 3.77-5.28 Hemoglobin 14.3 g/dL 11.1-15.9 Hematocrit 42.6 % 34.0-46.6 MCV 89 fL 79-97 MCH 29.8 pg 26.6-33.0 MCHC 33.6 g/dL 31.5-35.7 RDW 13.5 % 12.3-15.4 Platelets 278 x10E3/uL 150-379 Neutrophils 45 % Lymphs 45 % Monocytes 7 % Eos 2 % Basos 1 % Neutrophils (Absolute) 3.8 x10E3/uL 1.4-7.0 Lymphs (Absolute) 3.8 x10E3/uL 0.7-3.1 Monocytes(Absolute) 0.6 x10E3/uL 0.1-0.9 Eos (Absolute) 0.2 x10E3/uL 0.0-0.4 Baso (Absolute) 0.1 x10E3/uL 0.0-0.2 Immature Granulocytes 0 % Immature Grans (Abs) 0.0 x10E3/uL 0.0-0.1 Comp. Metabolic Panel (14) - 05/28/16 17:12 Glucose, Serum 75 mg/dL 65-99 BUN 9 mg/dL 6-20 Creatinine, Serum 0.64 mg/dL 0.57-1.00 eGFR If NonAfricn Am 118 mL/min/1.73 >59 eGFR If Africn Am 136 mL/min/1.73 >59 BUN/Creatinine Ratio 14 8-20 Sodium, Serum 142 mmol/L 136-144 Potassium, Serum 4.2 mmol/L 3.5-5.2 Chloride, Serum 99 mmol/L 97-106 Carbon Dioxide, Total 27 mmol/L 18-29 Calcium, Serum 9.4 mg/dL 8.7-10.2 Protein, Total, Serum 7.2 g/dL 6.0-8.5 Albumin, Serum 4.5 g/dL 3.5-5.5 Globulin, Total 2.7 g/dL 1.5-4.5 A/G Ratio 1.7 1.1-2.5 Bilirubin, Total 0.5 mg/dL 0.0-1.2 Alkaline Phosphatase, S 53 IU/L 39-117 AST (SGOT) 15 IU/L 0-40 ALT (SGPT) 14 IU/L 0-32 CBC With Differential/Platelet - 09/18/16 17:53 WBC 8.1 x10E3/uL 3.4-10.8 RBC 4.63 x10E6/uL 3.77-5.28 Hemoglobin 14.3 g/dL 11.1-15.9 Hematocrit 42.7 % 34.0-46.6 MCV 92 fL 79-97 MCH 30.9 pg 26.6-33.0 MCHC 33.5 g/dL 31.5-35.7 RDW 14.3 % 12.3-15.4 Platelets 201 x10E3/uL 150-379 Neutrophils 49 % Lymphs 44 % Monocytes 5 % Eos 2 % Basos 0 % Neutrophils (Absolute) 4.0 x10E3/uL 1.4-7.0 Lymphs (Absolute) 3.6 x10E3/uL 0.7-3.1 Monocytes(Absolute) 0.4 x10E3/uL 0.1-0.9 Eos (Absolute) 0.1 x10E3/uL 0.0-0.4 Baso (Absolute) 0.0 x10E3/uL 0.0-0.2 Immature Granulocytes 0 % Immature Grans (Abs) 0.0 x10E3/uL 0.0-0.1 Comp. Metabolic Panel (14) - 09/18/16 17:53 Glucose, Serum 79 mg/dL 65-99 BUN 7 mg/dL 6-20 Creatinine, Serum 0.66 mg/dL 0.57-1.00 eGFR If NonAfricn Am 116 mL/min/1.73 >59 eGFR If Africn Am 134 mL/min/1.73 >59 BUN/Creatinine Ratio 11 8-20 Sodium, Serum 141 mmol/L 134-144 Potassium, Serum 3.8 mmol/L 3.5-5.2 Chloride, Serum 100 mmol/L 96-106 Carbon Dioxide, Total 24 mmol/L 18-29 Calcium, Serum 9.0 mg/dL 8.7-10.2 Protein, Total, Serum 7.0 g/dL 6.0-8.5 Albumin, Serum 4.5 g/dL 3.5-5.5 Globulin, Total 2.5 g/dL 1.5-4.5 A/G Ratio 1.8 1.1-2.5 Bilirubin, Total 0.4 mg/dL 0.0-1.2 Alkaline Phosphatase, S 45 IU/L 39-117 AST (SGOT) 11 IU/L 0-40 ALT (SGPT) 12 IU/L 0-32 Comp. Metabolic Panel (14) - 01/21/17 17:53 Glucose, Serum 69 mg/dL 65-99 BUN 13 mg/dL 6-20 Creatinine, Serum 0.64 mg/dL 0.57-1.00 eGFR If NonAfricn Am 118 mL/min/1.73 >59 eGFR If Africn Am 136 mL/min/1.73 >59 BUN/Creatinine Ratio 20 9-23 Sodium, Serum 137 mmol/L 134-144 Potassium, Serum 4.0 mmol/L 3.5-5.2 Chloride, Serum 101 mmol/L 96-106 Carbon Dioxide, Total 19 mmol/L 18-29 Calcium, Serum 9.0 mg/dL 8.7-10.2 Protein, Total, Serum 6.9 g/dL 6.0-8.5 Albumin, Serum 4.1 g/dL 3.5-5.5 Globulin, Total 2.8 g/dL 1.5-4.5 A/G Ratio 1.5 1.2-2.2 Bilirubin, Total 0.2 mg/dL 0.0-1.2 Alkaline Phosphatase, S 49 IU/L 39-117 AST (SGOT) 13 IU/L 0-40 ALT (SGPT) 6 IU/L 0-32 THYROID ANALYZER - 02/02/18 14:47 TSH 1.81 mIU/L NRG Encounters ACCT No. Visit Date/Time Discharge Status Pt. Type Provider Facility Loc./Unit Complaint [id number] 05/11/2013 09:43:00 05/11/2013 23:59:59 [place] [id number] 10/15/2011 09:50:00 10/15/2011 23:59:59 CLS Outpatient [id number] 08/12/2018 09:00:00 08/12/2018 23:59:59 [id number] 02/02/2018 13:40:00 Document Registration [id number] 09/19/2016 08:42:00 Document Registration [id number] 01/23/2017 08:07:00 Document Registration [id number] 11/28/2015 10:39:00 11/29/2015 16:30:00 DIS Inpatient VIVIAN RANDLE, BRANDY Louise [facility] 4TH ABD PAIN W/INTRACTABLE N/V COLITIS [id number] 07/24/2015 12:08:00 07/24/2015 23:59:59 CLS Outpatient SHARI RAM DO [facility] CARD EPIGASTRIC PAIN, DIARRHEA,WEIGHT LOSS [id number] 07/19/2015 19:48:00 07/21/2015 11:45:00 DIS Inpatient KEVIN JEREZ DO [facility] 4TH INTRACTABLE N/V,HYPOKALEMIA,DEHYDRATION [id number] 07/17/2015 21:43:00 07/18/2015 00:45:00 DIS Emergency SHARITA RANDLE, DEBBIE Borja [facility] ER VOMITING/NAUSEA [id number] 07/17/2015 11:00:00 07/17/2015 15:00:00 DIS Outpatient SHARI RAM DO [facility] SDC EPIGASTRIC PAIN,NAUSEA,WEIGHT LOSS [id number] 07/16/2015 11:30:00 07/16/2015 23:59:59 CLS Outpatient SHARI RAM DO [facility] PREOP EPIGASTRIC PAIN,NAUSEA,WEIGHT LOSS [id number] 11/05/2011 23:15:00 Document Registration [id number] 11/04/2011 19:46:00 Document Registration [id number] 09/21/2011 19:46:00 Document Registration [id number] 05/29/2016 08:07:00 Document Registration
[2019-02-17] MEDS ORDERED: LACTATED RINGERS 1,000 ML IV ONE (02:05)
--- NOTE | 2019-02-17 02:08 | ED Fall/Injury ---
General Stated Complaint: DETOXING,FALL-HEAD & RT ARM PAIN Source: patient, family Exam Limitations: no limitations History of Present Illness Date Seen by Provider: Feb 17, 2019 Time Seen by Provider: 01:49 Initial Comments patient presents with family to the ER with chief complaint that she had a fall yesterday between [id number] and struck her head against either the sink or the toilet. She is also having pain under her left armpit and her ribs not worse on inspiration. No shortness of breath cough. She does not think she is blacked out very long. She's having nausea all day today. She has been steadily withdrawing off alcohol in the last 4 days and was written Naltrexone by [facility] but she has not been taking it because she says her says it is silly. She's had no fevers chills diarrhea. She is having pain in her shoulder knees and headache. She has not taken anything for pain although she usually uses ibuprofen. She has done inpatient alcohol withdrawal treatment at [facility] for 5 days in the past successfully. She then did 7 months outpatient alcohol free. One month ago however her told her that he wanted a divorce and she started drinking again and stopped taking her naltrexone. She has been taking her olanzapine for the past week when it was started for her schizophrenia and recently had her dose increased. She takes the doxazosin as well for nightmares. She has an appointment with her psychiatrist on Thursday, tomorrow. Because of her nausea vomiting and pain she does not think that she will make that appointment and does not think that she will tolerate stop drinking. She says she stopped drinking 3 days ago but had another drink again last night. She says she feels safe at home but her is very manipulative and plays mental games with her. She says she is bipolar and mean but she does not think that he will hurt her or her daughter. Allergies and Home Medications Allergies Coded Allergies: No Known Drug Allergies (Unverified , 11/28/15) Home Medications Ciprofloxacin HCl 500 Mg Tablet, 500 MG PO BID Prescribed by: BRANDY PARK on 11/29/15 1528 Clonazepam 1 Mg Tablet, 1 MG PO TID PRN for ANXIETY, (Reported) LAST FILLED 09/14/15 #90 Lorazepam 0.5 Mg Tablet, 0.5 MG PO TID PRN for AGITATION Prescribed by: DACIA STREET on 02/17/19409 Metronidazole 500 Mg Tablet, 500 MG PO TID Prescribed by: BRANDY PARK on 11/29/15 1528 Norgestimate-Ethinyl Estradiol 1 Each Tablet, 1 TAB PO HS, (Reported) Ondansetron 4 Mg Tab.rapdis, 4 MG PO Q6H PRN for NAUSEA/VOMITING Prescribed by: DACIA STREET on 02/17/19409 Pantoprazole Sodium 40 Mg Tablet.dr, 40 MG PO DAILY, (Reported) LAST FILLED 08/01/15 #180 Prochlorperazine Maleate 5 Mg Tablet, 5 MG PO Q8H PRN for NAUSEA Prescribed by: BRANDY PARK on 11/29/15 1528 Sucralfate 1 Gm Tablet, 1 GM PO AC, (Reported) LAST FILLED 07/21/15 #120 Patient Home Medication List Home Medication List Reviewed: Yes Review of Systems Review of Systems Constitutional: No chills, No fever; malaise Eyes: Denies Blindness, Denies Blurred Vision Ears, Nose, Mouth, Throat: denies ear pain, denies ear discharge Respiratory: No cough, No short of breath Cardiovascular: No chest pain, No edema Genitourinary: No dysuria, No frequency Past Nrkijfm-Cfburx-Iofpcy Hx Patient Social History Recent Foreign Travel: No Contact w/Someone Who Travel: No Immunizations Up To Date Tetanus Booster (TDap): Unknown Date of Influenza Vaccine: Apr 30, 2011 Past Medical History Section Seizure Disorder Reproductive Disorders: No Female Reproductive Disorders: Ovarian Cyst Sexually Transmitted Disease: No HIV/AIDS: No Gastroesophageal Reflux Anxiety, Schizophrenia, Depression Eczema Family Medical History Arthritis 19 MOTHER Diabetes 19 FATHER 19 MOTHER FH: skin cancer 19 FATHER Heart attack 19 FATHER Hypertension 19 MOTHER Thyroid disease 19 MOTHER No Family History of: Dysphasia Heart Disease, Diabetes Physical Exam Vital Signs Vital Signs - First Documented 02/17/19 01:34 Temp 98.0 Pulse 95 Resp 20 B/P (MAP) 172/111 (131) Pulse Ox 99 O2 Delivery Room Air Capillary Refill : Height, Weight, BMI Height: 5'1.00" Weight: 95lbs. 0.0oz. 43.081556qu; 18.0 BMI Method:Stated General Appearance: WD/WN, moderate distress HEENT: PERRL/EOMI, normal ENT inspection, TMs normal, pharynx normal, other (atraumatic head with mild tenderness over the midline occiput but no hematoma or laceration. No raccoon eyes, Grier sign or hemotympanum) Neck: non-tender, full range of motion, supple, normal inspection Cardiovascular: normal peripheral pulses, regular rate, rhythm Respiratory: lungs clear, normal breath sounds, no respiratory distress, no accessory muscle use, other (left midaxillary line tenderness in the ribs without ecchymosis or deformity) Peripheral Pulses: 2+ Dorsalis Pedis (R), 2+ Left Dors-Pedis (L), 2+ Radial Pulses (R), 2+ Radial Pulses (L) Gastrointestinal: normal bowel sounds, non tender, soft Back: normal inspection, no vertebral tenderness Extremities: non-tender, normal inspection, no pedal edema, normal capillary refill Neurologic/Psychiatric: child's nurse II-XII nml as tested, no motor/sensory deficits, alert, oriented x 3, other (tearful, agitated.) Skin: normal color, warm/dry, ecchymosis (mild ecchymoses on the left knee With minor abrasion.) Progress/Results/Core Measures Results/Orders Lab Results Laboratory Tests Test 02/17/19 01:48 02/17/19 04:13 Range/Units White Blood Count 9.4 4.3-11.0 10^3/uL Red Blood Count 5.16 4.35-5.85 10^6/uL Hemoglobin 15.0 11.5-16.0 G/DL Hematocrit 44 35-52 % Mean Corpuscular Volume 85 80-99 FL Mean Corpuscular Hemoglobin 29 25-34 PG Mean Corpuscular Hemoglobin Concent 34 32-36 G/DL Red Cell Distribution Width 15.1 H 10.0-14.5 % Platelet Count 307 130-400 10^3/uL Mean Platelet Volume 8.8 7.4-10.4 FL Neutrophils (%) (Auto) 58 42-75 % Lymphocytes (%) (Auto) 34 12-44 % Monocytes (%) (Auto) 7 0-12 % Eosinophils (%) (Auto) 1 0-10 % Basophils (%) (Auto) 0 0-10 % Neutrophils # (Auto) 5.5 1.8-7.8 X 10^3 Lymphocytes # (Auto) 3.2 1.0-4.0 X 10^3 Monocytes # (Auto) 0.6 0.0-1.0 X 10^3 Eosinophils # (Auto) 0.1 0.0-0.3 10^3/uL Basophils # (Auto) 0.0 0.0-0.1 10^3/uL Sodium Level 141 135-145 MMOL/L Potassium Level 3.4 L 3.6-5.0 MMOL/L Chloride Level 103 98-107 MMOL/L Carbon Dioxide Level 20 L 21-32 MMOL/L Anion Gap 18 H 5-14 MMOL/L Blood Urea Nitrogen 9 7-18 MG/DL Creatinine 0.77 0.60-1.30 MG/DL Estimat Glomerular Filtration Rate > 60 BUN/Creatinine Ratio 12 Glucose Level 77 70-105 MG/DL Calcium Level 8.9 8.5-10.1 MG/DL Corrected Calcium 8.5 8.5-10.1 MG/DL Total Bilirubin 0.3 0.1-1.0 MG/DL Aspartate Amino Transf (AST/SGOT) 22 5-34 U/L Alanine Aminotransferase (ALT/SGPT) 16 0-55 U/L Alkaline Phosphatase 84 40-136 U/L Total Protein 8.0 6.4-8.2 GM/DL Albumin 4.5 3.2-4.5 GM/DL Serum Alcohol 192 H <10 MG/DL Urine Color YELLOW Urine Clarity CLEAR Urine pH 7 5-9 Urine Specific [place] 1.010 L 1.016-1.022 Urine Protein 1+ H NEGATIVE Urine Glucose (UA) NEGATIVE NEGATIVE Urine Ketones NEGATIVE NEGATIVE Urine Nitrite NEGATIVE NEGATIVE Urine Bilirubin NEGATIVE NEGATIVE Urine Urobilinogen NORMAL NORMAL MG/DL Urine Leukocyte Esterase NEGATIVE NEGATIVE Urine RBC (Auto) 1+ H NEGATIVE Urine RBC RARE /HPF Urine WBC NONE /HPF Urine Squamous Epithelial Cells 10-25 H /HPF Urine Crystals PRESENT H /LPF Urine Amorphous Sediment FEW STEPHANIE PHOSPHATE H /LPF Urine Bacteria TRACE /HPF Urine Casts NONE /LPF Urine Mucus SMALL H /LPF Urine Culture Indicated NO Urine Opiates Screen NEGATIVE NEGATIVE Urine Oxycodone Screen NEGATIVE NEGATIVE Urine Methadone Screen NEGATIVE NEGATIVE Urine Propoxyphene Screen NEGATIVE NEGATIVE Urine Barbiturates Screen NEGATIVE NEGATIVE Ur Tricyclic Antidepressants Screen NEGATIVE NEGATIVE Urine Phencyclidine Screen NEGATIVE NEGATIVE Urine Amphetamines Screen NEGATIVE NEGATIVE Urine Methamphetamines Screen NEGATIVE NEGATIVE Urine Benzodiazepines Screen POSITIVE H NEGATIVE Urine Cocaine Screen NEGATIVE NEGATIVE Urine Cannabinoids Screen POSITIVE H NEGATIVE My Orders Orders - [address]IA [address] Ketorolac Injection (Toradol Injection) (02/17/19 02:15) Ondansetron Injection (Zofran Injectio (02/17/19 02:15) Ed Iv/Invasive Line Start (02/17/19 02:05) Lactated Ringers (Lr 1000 Ml Iv Solution (02/17/19 02:05) Thiamine Injection (Vitamin B-1 Injectio (02/17/19 02:15) Folic Acid Injection (Folic Acid Injecti (02/17/19 02:15) Cbc With Automated Diff (02/17/19 02:08) Comprehensive Metabolic Panel (02/17/19 02:08) Ua Culture If Indicated (02/17/19 02:08) Urine Bedside (02/17/19 02:08) Drug Screen Stat (Urine) (02/17/19 02:08) Ct Head/Cervical Spine Wo (02/17/19 02:08) Alcohol (02/17/19 02:14) Ribs, Left 2-3 Views (02/17/19 03:12) Lorazepam Injection (Ativan Injection) (02/17/19 03:30) Ondansetron Injection (Zofran Injectio (02/17/19 03:30) Medications Given in ED Current Medications Medications Dose Ordered Sig/Arturo Route Start Time Stop Time Status Last Admin Dose Admin Ketorolac Tromethamine 30 mg ONCE ONCE IVP 02/17/19 02:15 02/17/19 02:16 DC 02/17/19 02:27 30 MG Lactated Ringer's 1,000 ml @ 0 mls/hr Q0M ONCE IV 02/17/19 02:05 02/17/19 02:07 DC 02/17/19 02:28 1,000 MLS/HR Lorazepam 0.25 mg ONCE ONCE IVP 02/17/19 03:30 02/17/19 03:32 DC 02/17/19 03:41 0.25 MG Ondansetron HCl 4 mg ONCE ONCE IVP 02/17/19 03:30 02/17/19 03:32 DC 02/17/19 03:40 4 MG Ondansetron HCl 8 mg ONCE ONCE IVP 02/17/19 02:15 02/17/19 02:16 DC 02/17/19 02:26 8 MG Thiamine HCl 100 mg ONCE ONCE IV 02/17/19 02:15 02/17/19 02:16 DC 02/17/19 02:27 100 MG Vital Signs/I&O 02/17/19 01:34 Temp 98.0 Pulse 95 Resp 20 B/P (MAP) 172/111 (131) Pulse Ox 99 O2 Delivery Room Air Progress Progress Note : Time: 03:23 Progress Note X-ray left ribs, CT of the head and neck, Ativan and Zofran for nausea. We had a long discussion about goals of care and the patient wants to go home with her mom and her daughter and follow-up with the [facility] today. We will provide her with a couple doses of Ativan and Zofran will she transitions inpatient. Diagnostic Imaging Diagonstic Imaging: Xray Plain Films/CT/US/NM/MRI: chest (ribs left) Comments No acute osseous abdomen mildly abnormality. No pneumothorax or opacification. Reviewed: Reviewed by Me Diagonstic Imaging: CT (head neck) Plain Films/CT/US/NM/MRI: c-spine, head Comments No acute hemorrhage, hydrocephalus or mass effect. Severely opacified right maxillary sinus. No acute fracture or subluxation. Reviewed: Reviewed [place] Hawk Study, Reviewed by Me Departure Impression Primary Impression: Fall Qualified Codes: W19.XXXA - Unspecified fall, initial encounter Additional Impressions: Bruised ribs Qualified Codes: S20.212A - Contusion of left front wall of thorax, initial encounter Minor head injury with loss of consciousness Qualified Codes: S06.9X9A - Unspecified intracranial injury with loss of consciousness of unspecified duration, initial encounter Concussion Qualified Codes: S06.0X1A - Concussion with loss of consciousness of 30 minutes or less, initial encounter Alcohol dependence Qualified Codes: F10.29 - Alcohol dependence with unspecified alcohol- induced disorder Disposition: 01 HOME, SELF-CARE Condition: Stable Departure-Patient Inst. Decision time for Depature: 04:07 Referrals: RONAL FOELY APRN (PCP/Family) Primary Care Physician Patient Instructions: Concussion in Adults, Alcohol Abuse and Alcoholism (DC), Bruised Rib (DC) Add. Discharge Instructions: This morning when the [facility] [place] opens you should call them and request inpatient treatment. Alcohol treatment Center [facility] [address], [place] [id number] Every 8 hours if you're having withdrawal symptoms or shakes you may use the Ativan one tablet. If you have nausea you may take one tablet of the Zofran put it under your tongue and allowed to absorb every 6 hours as needed. Stick to a liquid diet until you're nausea has improved. Sports drinks mixed with water 50-50 are advisable. Scripts Ondansetron (Ondansetron Odt) 4 Mg Tab.rapdis 4 MG PO Q6H PRN for NAUSEA/VOMITING, #12 TAB 0 Refills Prov: DACIA STREET 02/17/19 Lorazepam (Ativan) 0.5 Mg Tablet 0.5 MG PO TID PRN for AGITATION for 2 Days, #6 TAB 0 Refills Prov: DACIA STREET 02/17/[address] Feb 17, 2019 02:08
[2019-02-17 02:14] LABS: BASOPHILS % (AUTO) 0 % (0-10); EOSINOPHILS # (AUTO) 0.1 10^3/uL (0.0-0.3); EOSINOPHILS % (AUTO) 1 % (0-10); HEMATOCRIT 44 % (35-52); LYMPHOCYTES # (AUTO) 3.2 X 10^3 (1.0-4.0); LYMPHOCYTES % (AUTO) 34 % (12-44); MEAN CORPUSCULAR HEMOGLOBIN 29 PG (25-34); MEAN CORPUSCULAR HGB CONC 34 G/DL (32-36); MEAN CORPUSCULAR VOLUME 85 FL (80-99); MEAN PLATELET VOLUME 8.8 FL (7.4-10.4); MONOCYTES # (AUTO) 0.6 X 10^3 (0.0-1.0); MONOCYTES % (AUTO) 7 % (0-12); NEUTROPHILS # (AUTO) 5.5 X 10^3 (1.8-7.8); NEUTROPHILS % (AUTO) 58 % (42-75); PLATELET COUNT 307 10^3/uL (130-400); RED CELL DISTRIBUTION WIDTH 15.1 % (10.0-14.5); WHITE BLOOD COUNT 9.4 10^3/uL (4.3-11.0)
[2019-02-17] MEDS ORDERED: FOLIC ACID 5MG/ML 10 ML IV ONE (02:15)
[2019-02-17] MEDS ORDERED: KETOROLAC 30 MG/ML VIAL IVP ONE (02:15)
[2019-02-17] MEDS ORDERED: ONDANSETRON 4 MG/2 ML (SDV) Z0FRAN IVP ONE ×2 (02:15→03:30)
[2019-02-17] MEDS ORDERED: THIAMINE 100 MG/ML 2 ML (VITAMIN B-1) VIAL IV ONE (02:15)
[2019-02-17 02:28] LABS: BUN/CREATININE RATIO 12; CARBON DIOXIDE 20 MMOL/L (21-32); CHLORIDE 103 MMOL/L (98-107); CREATININE SERUM 0.77 MG/DL (0.60-1.30); POTASSIUM 3.4 MMOL/L (3.6-5.0); SODIUM 141 MMOL/L (135-145)
[2019-02-17 02:29] LABS: ALANINE AMINOTRANSFERASE 16 U/L (0-55); ALBUMIN 4.5 GM/DL (3.2-4.5); ALKALINE PHOSPHATASE 84 U/L (40-136); BILIRUBIN,TOTAL 0.3 MG/DL (0.1-1.0); CALCIUM 8.9 MG/DL (8.5-10.1); GFR ESTIMATED > 60; GLUCOSE 77 MG/DL (70-105)
[2019-02-17] MEDS ORDERED: LORazepam INJ 2 MG/ML (ATIVAN) VIAL IVP ONE (03:30)
[2019-02-17] MEDS ORDERED: ONDA4TAB11 PO (04:10)
[2019-02-17] MEDS ORDERED: LORA-404 PO (04:10)
[2019-02-17 04:22] LABS: BILIRUBIN,URINE NEGATIVE (NEGATIVE); CLARITY,URINE CLEAR; COLOR,URINE YELLOW; GLUCOSE, URINE (UA) NEGATIVE (NEGATIVE); KETONES,URINE NEGATIVE (NEGATIVE); LEUKOCYTE ESTERASE ,URINE NEGATIVE (NEGATIVE); NITRITE,URINE NEGATIVE (NEGATIVE); PH,URINE 7 (5-9); PROTEIN,URINE 1+ (NEGATIVE); UROBILINOGEN,URINE NORMAL (NORMAL)
[2019-02-17 04:30] LABS: AMORPHOUS SEDIMENT,UR FEW AMOR PHOSPHATE /LPF; BACTERIA,URINE TRACE /HPF; RBC,URINE RARE /HPF
[2019-02-17 04:33] LABS: AMPHETAMINE SCREEN, URINE NEGATIVE (NEGATIVE); BARBITURATE SCREEN URINE NEGATIVE (NEGATIVE); BENZODIAZEPINES SCREEN URINE POSITIVE (NEGATIVE); CANNABINOID SCREEN, URINE POSITIVE (NEGATIVE); COCAINE SCREEN URINE NEGATIVE (NEGATIVE); METHADONE STAT NEGATIVE (NEGATIVE); METHAMPHETAMINE SCREEN URINE S NEGATIVE (NEGATIVE); OPIATE SCREEN URINE NEGATIVE (NEGATIVE); OXYCODONE STAT NEGATIVE (NEGATIVE); PROPOXYPHENE STAT NEGATIVE (NEGATIVE); TRICYCLIC ANTIDEPRESSANTS SCRE NEGATIVE (NEGATIVE)
[2019-02-17 04:50] VITALS: BP 126/82
--- NOTE | 2019-02-17 06:25 | Diagnostic Imaging Report ---
PROCEDURE: CT head and CT cervical spine without contrast. TECHNIQUE: Multiple contiguous axial images were obtained through the brain and cervical spine without the use of intravenous contrast. Sagittal and coronal reformations through the cervical spine were then performed. Auto Exposure Controls were utilized during the CT exam to meet ALARA standards for radiation dose reduction. INDICATION: Fall with head and neck injury CT HEAD: CT images of the head were obtained. FINDINGS: Ventricles and sulci are within normal limits for size. There is no intracranial hemorrhage identified. There is no abnormal mass effect or shift of midline structures. IMPRESSION: Unremarkable CT of the head. CT cervical spine: EXAMINATION: Multiple contiguous axial CT images of the cervical spine were obtained with sagittal and coronal reformatted images produced. FINDINGS: The cervical curvature and alignment are within normal limits. The vertebral body heights and disc spaces are maintained without evidence of fracture or subluxation. There is no paraspinous hematoma. Note is made of extensive mural thickening and opacification of right maxillary sinus. IMPRESSION: No CT evidence of acute cervical spinal abnormality. There appears to be chronic right maxillary sinusitis. Dictated by: Dictated on workstation # [id number]
--- NOTE | 2019-02-17 06:46 | Diagnostic Imaging Report ---
Indication: Left rib injury from a fall 3 views of the left ribs show no displaced fractures. There is no effusion or pneumothorax. Impression: Negative left ribs. Dictated by: Dictated on workstation # [id number]
== END 2019-02-17 04:50 | disposition home or self-care (01) ==
LOC: EDUNIT# 01:07 → ER 01:11
DX: S06.0X9A Concussion with loss of consciousness of unspecified duration, initial encounter (principal); S20.212A Contusion of left front wall of thorax, initial encounter; S80.02XA Contusion of left knee, initial encounter; F10.20 Alcohol dependence, uncomplicated; F20.9 Schizophrenia, unspecified; G40.909 Epilepsy, unspecified, not intractable, without status epilepticus; K21.9 Gastro-esophageal reflux disease without esophagitis; F41.9 Anxiety disorder, unspecified; F32.9 Major depressive disorder, single episode, unspecified; Z91.14 Patient's other noncompliance with medication regimen; Z80.8 Family history of malignant neoplasm of other organs or systems; Z82.49 Family history of ischemic heart disease and other diseases of the circulatory system; W19.XXXA Unspecified fall, initial encounter; W22.8XXA Striking against or struck by other objects, initial encounter
CPT/HCPCS: 36415; 70450; 71100; 72125; 80053; 80306; 80320; 81000; 84703; 85025; 96361; 96374; 96375; 96376